=== PATIENT | male | born 1975 | race Caucasian/White ===

== ENCOUNTER 2019-03-21 16:28 | Emergency (ER) | payer SELFPAY ==
[~2019-03-21] VITALS: Ht 180.3 cm; Wt 63.5 kg
[2019-03-21 16:28] VITALS: BP 139/95
--- NOTE | 2019-03-21 16:28 | NUR ---
Patient BIBA BLS, transferred to bed 7. RN evaluating patient at bedside.
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
--- NOTE | 2019-03-21 16:37 | NUR ---
Dr. Martinez is evaluating the patient at bedside.
[2019-03-21] MEDS ORDERED: NACL 0.9% 1,000 ML IV ONE (16:45)
--- NOTE | 2019-03-21 16:52 | NUR ---
PT TAKEN TO CT VIA [place], ACCOMPANIED BY HISTORIOGRAPHY TEACHER.
[2019-03-21] MEDS ORDERED: INSULIN REGULAR, HUMAN 100 UNIT/ML VIAL SUBQ ONE (17:00)
--- NOTE | 2019-03-21 17:13 | NUR ---
PT RETURNED FROM CT AND PLACED IN BED 7.
[2019-03-21 17:18] LABS: APPEARANCE,URINE CLEAR (CLEAR); BILIRUBIN,URINE NEGATIVE (NEGATIVE); BLOOD, URINE NEGATIVE (NEGATIVE); COLOR,URINE YELLOW (YELLOW); LEUKOCYTE ESTERASE ,URINE NEGATIVE (NEGATIVE); NITRITE, URINE NEGATIVE (NEGATIVE); PH,URINE 5.5 (5.0-9.0); UGLUCOSE 3+ (NEGATIVE)
[2019-03-21 17:20] LABS: BARBITURATE, URINE NEGATIVE ng/ml (NEG <=200); BENZODIAZEPINE, URINE NEGATIVE ng/mL (NEG <=200); CANNABINOID, URINE NEGATIVE ng/mL (NEG <=50); COCAINE, URINE NEGATIVE ng/mL (NEG <=300); OPIATE, URINE NEGATIVE ng/mL (NEG <=2000); PHENCYCLIDINE SCREEN,URINE NEGATIVE ng/mL (NEG <=25)
[2019-03-21 17:35] LABS: BASOPHILS # (AUTO) 0.1 K/uL (0.00-0.22); BASOPHILS % (AUTO) 1.1 % (0.0-2.0); EOSINOPHILS % (AUTO) 13.7 % (0.0-4.0); HEMATOCRIT 39.4 % (36-52); HEMOGLOBIN 13.2 g/dL (12.0-18.0); LYMPHOCYTES # (AUTO) 0.5 K/uL (2.0-11.5); LYMPHOCYTES % (AUTO) 6.8 % (20.5-51.1); MEAN CORPUSCULAR HEMOGLOBIN 30 pg (27-31); MEAN CORPUSCULAR HGB CONC 34 g/dL (33-37); MEAN CORPUSCULAR VOLUME 90.2 fL (80-94); MONOCYTES # (AUTO) 0.6 K/uL (0.8-1.0); MONOCYTES % (AUTO) 7.5 % (1.7-9.3); NEUTROPHILS # (AUTO) 5.2 K/uL (1.8-7.7); NEUTROPHILS % (AUTO) 70.9 % (42.2-75.2); PLATELET COUNT (AUTO) 353 K/uL (140-450); RED BLOOD CELL COUNT(AUTO) 4.37 MIL/uL (4.20-6.10); RED CELL DISTRIBUTION WIDTH 12.7 % (11.6-13.7); WHITE BLOOD COUNT (AUTO) 7.3 K/uL (4.8-10.8)
[2019-03-21 17:51] LABS: ALBUMIN 2.9 g/dL (3.4-5.0); ANION GAP 11.5 (8-16); CARBON DIOXIDE 24.7 mmol/L (21-32); CREATININE 0.6 mg/dL (0.7-1.3); POTASSIUM 3.2 mmol/L (3.5-5.1); TOTAL BILIRUBIN 0.3 mg/dL (0.0-1.0)
[2019-03-21] MEDS ORDERED: POTASSIUM CHLORIDE 10 MEQ TABER PO ONE (18:00)
[2019-03-21 18:16] VITALS: BP 105/66
--- NOTE | 2019-03-21 18:16 | NUR ---
Patient discharged with v/s stable. Written and verbal after care instructions given and explained. Patient verbalized understanding. Ambulatory with steady gait. All questions addressed prior to discharge. Advised to follow up with PMD.
== END 2019-03-21 18:16 | disposition home or self-care (01) ==
LOC: MED 16:28
DX: R40.4 Transient alteration of awareness (principal); E87.6 Hypokalemia; E11.65 Type 2 diabetes mellitus with hyperglycemia; F15.20 Other stimulant dependence, uncomplicated
CPT/HCPCS: 36415; 70450; 80053; 80305; 81003; 82948; 85025; 93005; 96360; 96372; 99284; J1815; J7030

== ENCOUNTER 2021-09-23 18:37 | Emergency (ER) | payer BC, MEDICAID ==
[~2021-09-23] VITALS: Ht 175.3 cm; Wt 59.5 kg
[2021-09-23 19:03] VITALS: BP 93/54
[2021-09-23] MEDS ORDERED: NACL 0.9% 1,000 ML IV ONE (19:20)
[2021-09-23 20:06] LABS: BASOPHILS # (AUTO) 0.1 K/uL (0.00-0.22); BASOPHILS % (AUTO) 0.7 % (0.0-2.0); EOSINOPHILS # (AUTO) 0.4 K/uL (0-0.4); EOSINOPHILS % (AUTO) 3.6 % (0.0-4.0); HEMATOCRIT 36.5 % (36-52); HEMOGLOBIN 12.2 g/dL (12.0-18.0); MEAN CORPUSCULAR HEMOGLOBIN 28 pg (27-31); MEAN CORPUSCULAR HGB CONC 34 g/dL (33-37); MEAN CORPUSCULAR VOLUME 83.3 fL (80-94); MONOCYTES # (AUTO) 0.9 K/uL (0.8-1.0); MONOCYTES % (AUTO) 8.2 % (1.7-9.3); NEUTROPHILS # (AUTO) 8.1 K/uL (1.8-7.7); NEUTROPHILS % (AUTO) 77.5 % (42.2-75.2); PLATELET COUNT (AUTO) 377 K/uL (140-450); RED BLOOD CELL COUNT(AUTO) 4.38 MIL/uL (4.20-6.10); RED CELL DISTRIBUTION WIDTH 13.8 % (11.6-13.7); WHITE BLOOD COUNT (AUTO) 10.5 K/uL (4.8-10.8)
[2021-09-23 20:24] LABS: ALBUMIN 2.8 g/dL (3.4-5.0); ANION GAP 8.8 (8-16); CREATININE 0.8 mg/dL (0.6-1.3); MAGNESIUM 2.1 mg/dL (1.8-2.4); POTASSIUM 3.8 mmol/L (3.5-5.1); TOTAL BILIRUBIN 0.3 mg/dL (0.0-1.0)
[2021-09-23] MEDS ORDERED: INSULIN REGULAR, HUMAN 100 UNIT/ML VIAL SUBQ ONE (21:35)
[2021-09-23] MEDS ORDERED: INSU100S5 SUBQ (22:05)
[2021-09-23 22:39] VITALS: BP 100/62
== END 2021-09-23 22:44 | disposition home or self-care (01) ==
LOC: MED 18:37
DX: E11.65 Type 2 diabetes mellitus with hyperglycemia (principal); Z91.14 Patient's other noncompliance with medication regimen; Z79.4 Long term (current) use of insulin
CPT/HCPCS: 36415; 80053; 82803; 83036; 83735; 85025; 96360; 96372; 99283; J1815; J7030

== ENCOUNTER 2023-06-22 23:40 | Inpatient (IN) | payer MEDICAID, OTHER ==
[~2023-06-22] VITALS: Ht 172.7 cm; Wt 81.6 kg
[~2023-06-22 23:40] MED LIST: INSU100S5 SUBQ
[2023-06-22 23:44] VITALS: BP 68/43; PULSE 90; RESP 18; TEMP 97.4; O2SAT 96
[2023-06-22] MEDS: NACL 0.9% 2,000 ML IV ONE (23:58)
[2023-06-23] VITALS (27 sets, daily range): BP systolic 70–136; BP diastolic 42–90; PULSE 98–120; RESP 11–24; TEMP 97.9–100.7; O2SAT 96–100
[2023-06-23 00:06] LABS: BASOPHILS # (AUTO) 0.3 K/uL (0.00-0.22); EOSINOPHILS # (AUTO) 0.3 K/uL (0-0.4); EOSINOPHILS % (AUTO) 1.3 % (0.0-4.0); HEMATOCRIT 32.1 % (36-52); HEMOGLOBIN 10.5 g/dL (12.0-18.0); LYMPHOCYTES # (AUTO) 0.2 K/uL (2.0-11.5); LYMPHOCYTES % (AUTO) 0.8 % (20.5-51.1); MEAN CORPUSCULAR HEMOGLOBIN 29 pg (27-31); MEAN CORPUSCULAR HGB CONC 33 g/dL (33-37); MEAN CORPUSCULAR VOLUME 87.6 fL (80-94); MONOCYTES # (AUTO) 0.7 K/uL (0.8-1.0); MONOCYTES % (AUTO) 2.8 % (1.7-9.3); NEUTROPHILS # (AUTO) 24.5 K/uL (1.8-7.7); NEUTROPHILS % (AUTO) 94.1 % (42.2-75.2); PLATELET COUNT (AUTO) 180 K/uL (140-450); RED BLOOD CELL COUNT(AUTO) 3.66 MIL/uL (4.20-6.10); RED CELL DISTRIBUTION WIDTH 13.6 % (11.6-13.7)
[2023-06-23] MEDS ORDERED: cefTRIAXone 1,000 MG VIAL ONE (00:06)
[2023-06-23] MEDS ORDERED: NOREPINEPHRINE 4 MG/4 ML VIAL IV ONE ×2 (00:16)
[2023-06-23 00:22] LABS: ANION GAP 24.2 (8-16); CALCIUM 7.7 mg/dL (8.5-10.1); CARBON DIOXIDE 14.4 mmol/L (21-32); POTASSIUM 3.6 mmol/L (3.5-5.1)
[2023-06-23 00:24] LABS: BILIRUBIN,DIRECT 0.2 mg/dL (0.0-0.3); TOTAL BILIRUBIN 0.4 mg/dL (0.0-1.0); TOTAL PROTEIN, SERUM 7.4 g/dL (6.4-8.2)
[2023-06-23 00:25] LABS: CREATININE 5.4 mg/dL (0.6-1.3)
[2023-06-23 00:31] LABS: LACTIC ACID 2.4 mmol/L (0.4-2.0)
[2023-06-23 00:38] LABS: BLOOD GAS PH 7.264 (7.35-7.45)
[2023-06-23 00:39] LABS: BLOOD GAS HCO3 11.5 mmol/L (22-26); BLOOD GAS PO2 88.7 mmHg (75-100)
[2023-06-23 00:40] LABS: BLOOD GAS O2 SAT% 96.6 % (92.0-98.5)
[2023-06-23] MEDS ORDERED: PIPERACILLIN/TAZOBACTAM 3.375 GM VIAL IV ONE (00:41)
[2023-06-23] MEDS: PIPERACILLIN/TAZOBACTAM 3.375 GM in DEXTROSE 5% 50 ML IV ONE (00:48)
[2023-06-23] MEDS: NACL 0.9% 2,000 ML IV ONE (00:49)
[2023-06-23] MEDS: NOREPINEPHRINE 4 MG in DEXTROSE 5% 250 ML IV ONE (00:51)
[2023-06-23] MEDS: NACL 0.9% 1,000 ML IV ONE ×2 (01:32→02:14)
[2023-06-23] MEDS: INSULIN REGULAR, HUMAN 100 UNIT in NACL 0.9% 100 ML IV ONE (01:40)
[2023-06-23] MEDS: ONDANSETRON 4 MG/2 ML VIAL IVP ONE (02:18)
[2023-06-23] MEDS ORDERED: NOVR SUBQ (02:25)
[2023-06-23 02:26] LABS: APPEARANCE,URINE CLOUDY (CLEAR); BILIRUBIN,URINE 1+ (NEGATIVE); BLOOD, URINE 3+ (NEGATIVE); COLOR,URINE RED (YELLOW); LEUKOCYTE ESTERASE ,URINE 1+ (NEGATIVE); NITRITE, URINE NEGATIVE (NEGATIVE); PROTEIN,URINE 3+ (NEGATIVE); UGLUCOSE 3+ (NEGATIVE); UROBILINOGEN,URINE 0.2 EU/dL (0.2 - 1)
[2023-06-23 02:30] LABS: ICTOTEST POSITIVE (NEGATIVE)
[2023-06-23 02:31] LABS: RBC,URINE TOO NUMEROUS TO COUN /HPF (0-5)
[2023-06-23 02:32] LABS: BACTERIA,URINE 1+ /HPF (None Seen); SQUAMOUS EPITHELIAL CELL,UR 0-3 (FEW) /LPF (0-3 (FEW))
[2023-06-23] MEDS ORDERED: HYDROcodone/APAP 5/325 MG 1 TAB TAB PO PRN (02:40)
[2023-06-23] MEDS ORDERED: MORPHINE SULFATE 2 MG/ML SYR IVP PRN (02:40)
[2023-06-23] MEDS: DEXT 5% / NACL 0.45% 1,000 ML IV SCH (02:40)
[2023-06-23] MEDS ORDERED: DEXTROSE 50% 50 ML SYR IVP PRN (02:50)
[2023-06-23] MEDS: BLOOD GLUCOSE MONITORING 1 DEV DEV FS SCH (03:03)
[2023-06-23] MEDS: NACL 0.9% 1,000 ML IV SCH (03:12)
[2023-06-23 04:07] LABS: ANION GAP 25.9 (8-16); CARBON DIOXIDE 11.2 mmol/L (21-32); POTASSIUM 3.1 mmol/L (3.5-5.1)
[2023-06-23 04:13] LABS: CREATININE 4.8 mg/dL (0.6-1.3)
[2023-06-23 04:16] LABS: FREE T4 (FREE THYROXINE) 1.19 ng/dL (0.76-1.46); MAGNESIUM 1.8 mg/dL (1.8-2.4); PHOSPHORUS 4.4 mg/dL (2.5-4.9); THYROID STIMULATING HORMONE 0.63 uIU/mL (0.34-3.74)
[2023-06-23] MEDS ORDERED: PIPERACILLIN/TAZOBACTAM 2.25 GM VIAL IV ONE (05:27)
[2023-06-23] MEDS: PIPERACILLIN/TAZOBACTAM 2.25 GM in DEXTROSE 5% 50 ML IV SCH (05:35)
[2023-06-23] MEDS: POTASSIUM CHLORIDE 10 MEQ TABER PO PRN (06:13)
[2023-06-23] MEDS: NOREPINEPHRINE 4 MG in DEXTROSE 5% 250 ML IV PRN (08:47)
[2023-06-23 08:48] LABS: ANION GAP 21.6 (8-16); CALCIUM 7.2 mg/dL (8.5-10.1); CARBON DIOXIDE 13.4 mmol/L (21-32)
[2023-06-23 08:50] LABS: CREATININE 4.9 mg/dL (0.6-1.3)
[2023-06-23 08:51] LABS: MAGNESIUM 1.7 mg/dL (1.8-2.4); PHOSPHORUS 1.7 mg/dL (2.5-4.9)
[2023-06-23] MEDS: INSULIN REGULAR, HUMAN 100 UNIT in NACL 0.9% 100 ML IV SCH (09:34)
[2023-06-23] MEDS ORDERED: ONDANSETRON 4 MG/2 ML VIAL IVP PRN (10:10)
[2023-06-23] MEDS: POTASSIUM PHOSPHATE 15 MM in NACL 0.9% 250 ML IV SCH (15:10)
[2023-06-23 15:18] LABS: ANION GAP 22.7 (8-16); CALCIUM 7.5 mg/dL (8.5-10.1); CARBON DIOXIDE 11.6 mmol/L (21-32); POTASSIUM 3.3 mmol/L (3.5-5.1)
[2023-06-23 15:24] LABS: MAGNESIUM 1.7 mg/dL (1.8-2.4); PHOSPHORUS 2.2 mg/dL (2.5-4.9)
[2023-06-23 15:29] LABS: CREATININE 4.9 mg/dL (0.6-1.3)
[2023-06-23 18:07] LABS: CALCIUM 7.4 mg/dL (8.5-10.1); CARBON DIOXIDE 12.4 mmol/L (21-32); POTASSIUM 3.4 mmol/L (3.5-5.1)
[2023-06-23 18:11] LABS: MAGNESIUM 1.7 mg/dL (1.8-2.4); PHOSPHORUS 2.6 mg/dL (2.5-4.9)
[2023-06-23 20:34] LABS: ANION GAP 23.5 (8-16); CALCIUM 7.8 mg/dL (8.5-10.1); POTASSIUM 3.6 mmol/L (3.5-5.1)
[2023-06-23 20:38] LABS: CARBON DIOXIDE 9.1 mmol/L (21-32)
[2023-06-23 20:39] LABS: CREATININE 5.1 mg/dL (0.6-1.3)
[2023-06-24] VITALS (26 sets, daily range): BP systolic 94–120; BP diastolic 49–82; PULSE 86–118; RESP 14–27; TEMP 97.6–100.3; O2SAT 94–100
[2023-06-24 01:28] LABS: ANION GAP 18.3 (8-16); CALCIUM 7.3 mg/dL (8.5-10.1); CARBON DIOXIDE 13.8 mmol/L (21-32); MAGNESIUM 1.5 mg/dL (1.8-2.4); PHOSPHORUS 1.9 mg/dL (2.5-4.9); POTASSIUM 3.1 mmol/L (3.5-5.1)
[2023-06-24] MEDS: MAG SULF 2000 MG/WATER PREMIX 50 ML IV PRN (03:19)
[2023-06-24 04:45] LABS: HEMATOCRIT 31.6 % (36-52); HEMOGLOBIN 10.5 g/dL (12.0-18.0); MEAN CORPUSCULAR HEMOGLOBIN 29 pg (27-31); MEAN CORPUSCULAR HGB CONC 33 g/dL (33-37); MEAN CORPUSCULAR VOLUME 86.3 fL (80-94); PLATELET COUNT (AUTO) 122 K/uL (140-450); RED BLOOD CELL COUNT(AUTO) 3.66 MIL/uL (4.20-6.10); RED CELL DISTRIBUTION WIDTH 13.7 % (11.6-13.7)
[2023-06-24 04:56] LABS: ALBUMIN 1.4 g/dL (3.4-5.0); ANION GAP 19.4 (8-16); CALCIUM 7.2 mg/dL (8.5-10.1); CARBON DIOXIDE 14.7 mmol/L (21-32); MAGNESIUM 1.6 mg/dL (1.8-2.4); POTASSIUM 3.1 mmol/L (3.5-5.1); TOTAL BILIRUBIN 0.3 mg/dL (0.0-1.0)
[2023-06-24 05:32] LABS: CREATININE 4.9 mg/dL (0.6-1.3)
[2023-06-24 05:33] LABS: LYMPHOCYTES % (MANUAL) 0 % (20-46); MONOCYTES % (MANUAL) 2 % (5-12); WHITE BLOOD COUNT (AUTO) 26.9 K/uL (4.8-10.8)
[2023-06-24 08:08] LABS: T4 (THYROXINE) 5.9 ug/dL (4.5-12.0)
[2023-06-24 08:35] LABS: CALCIUM 7.4 mg/dL (8.5-10.1); CARBON DIOXIDE 13.2 mmol/L (21-32); POTASSIUM 3.2 mmol/L (3.5-5.1)
[2023-06-24 08:36] LABS: CREATININE 4.9 mg/dL (0.6-1.3)
[2023-06-24] MEDS: ACETAMINOPHEN 325 MG TAB PO PRN (09:56)
[2023-06-24] MEDS: POTASSIUM PHOSPHATE 15 MM in NACL 0.9% 250 ML IV SCH ×2 (10:20→16:12)
[2023-06-24] MEDS ORDERED: METOCLOPRAMIDE 10 MG/2 ML INJ VIAL IVP PRN (11:35)
[2023-06-24 12:36] LABS: ANION GAP 17.5 (8-16); CALCIUM 6.8 mg/dL (8.5-10.1); CARBON DIOXIDE 14.3 mmol/L (21-32); POTASSIUM 3.8 mmol/L (3.5-5.1)
[2023-06-24 12:48] LABS: MAGNESIUM 1.9 mg/dL (1.8-2.4); PHOSPHORUS 2.1 mg/dL (2.5-4.9)
[2023-06-24 17:39] LABS: ALBUMIN 1.3 g/dL (3.4-5.0); ANION GAP 21.8 (8-16); CARBON DIOXIDE 12.6 mmol/L (21-32); MAGNESIUM 1.9 mg/dL (1.8-2.4); PHOSPHORUS 2.5 mg/dL (2.5-4.9); POTASSIUM 3.4 mmol/L (3.5-5.1); TOTAL BILIRUBIN 0.3 mg/dL (0.0-1.0); TOTAL PROTEIN, SERUM 5.9 g/dL (6.4-8.2)
[2023-06-24 19:11] LABS: CALCIUM 7.7 mg/dL (8.5-10.1)
[2023-06-24 20:58] LABS: ALBUMIN 1.3 g/dL (3.4-5.0); ANION GAP 19.8 (8-16); CARBON DIOXIDE 11.5 mmol/L (21-32); MAGNESIUM 1.8 mg/dL (1.8-2.4); PHOSPHORUS 3.1 mg/dL (2.5-4.9); POTASSIUM 3.3 mmol/L (3.5-5.1); TOTAL BILIRUBIN 0.4 mg/dL (0.0-1.0); TOTAL PROTEIN, SERUM 5.8 g/dL (6.4-8.2)
[2023-06-24 21:03] LABS: CREATININE 4.8 mg/dL (0.6-1.3)
[2023-06-24 21:40] LABS: CALCIUM 7.5 mg/dL (8.5-10.1)
[2023-06-25] VITALS (28 sets, daily range): BP systolic 93–145; BP diastolic 52–79; PULSE 82–105; RESP 14–25; TEMP 98.6–102.4; O2SAT 93–99
[2023-06-25 00:50] LABS: ANION GAP 21.7 (8-16); CALCIUM 7.1 mg/dL (8.5-10.1); CARBON DIOXIDE 11.3 mmol/L (21-32)
[2023-06-25 00:52] LABS: MAGNESIUM 1.7 mg/dL (1.8-2.4); PHOSPHORUS 3.8 mg/dL (2.5-4.9)
[2023-06-25 01:01] LABS: CREATININE 4.9 mg/dL (0.6-1.3)
[2023-06-25 04:33] LABS: EOSINOPHILS # (AUTO) 0.2 K/uL (0-0.4); HEMOGLOBIN 9.6 g/dL (12.0-18.0); MEAN CORPUSCULAR HEMOGLOBIN 29 pg (27-31)
[2023-06-25 04:42] LABS: BASOPHILS % (AUTO) 0.2 % (0.0-2.0); EOSINOPHILS % (AUTO) 1.1 % (0.0-4.0); HEMATOCRIT 28.3 % (36-52); LYMPHOCYTES # (AUTO) 0.3 K/uL (2.0-11.5); LYMPHOCYTES % (AUTO) 1.9 % (20.5-51.1); MEAN CORPUSCULAR HGB CONC 34 g/dL (33-37); MEAN CORPUSCULAR VOLUME 85.4 fL (80-94); MONOCYTES # (AUTO) 0.8 K/uL (0.8-1.0); MONOCYTES % (AUTO) 5.5 % (1.7-9.3); NEUTROPHILS # (AUTO) 13.4 K/uL (1.8-7.7); NEUTROPHILS % (AUTO) 91.3 % (42.2-75.2); PLATELET COUNT (AUTO) 90 K/uL (140-450); RED BLOOD CELL COUNT(AUTO) 3.31 MIL/uL (4.20-6.10); RED CELL DISTRIBUTION WIDTH 14.4 % (11.6-13.7); WHITE BLOOD COUNT (AUTO) 14.7 K/uL (4.8-10.8)
[2023-06-25 04:58] LABS: ALBUMIN 1.2 g/dL (3.4-5.0); ANION GAP 19.9 (8-16); CARBON DIOXIDE 12.8 mmol/L (21-32); MAGNESIUM 1.8 mg/dL (1.8-2.4); PHOSPHORUS 3.2 mg/dL (2.5-4.9); POTASSIUM 3.7 mmol/L (3.5-5.1); TOTAL BILIRUBIN 0.3 mg/dL (0.0-1.0); TOTAL PROTEIN, SERUM 5.6 g/dL (6.4-8.2)
[2023-06-25 05:46] LABS: CREATININE 4.9 mg/dL (0.6-1.3)
[2023-06-25 05:49] LABS: CALCIUM 7.4 mg/dL (8.5-10.1)
[2023-06-25 08:30] LABS: ANION GAP 19.7 (8-16); CARBON DIOXIDE 11.2 mmol/L (21-32); POTASSIUM 3.9 mmol/L (3.5-5.1)
[2023-06-25 08:32] LABS: CREATININE 4.9 mg/dL (0.6-1.3)
[2023-06-25 08:35] LABS: MAGNESIUM 1.8 mg/dL (1.8-2.4); PHOSPHORUS 3.2 mg/dL (2.5-4.9)
[2023-06-25] MEDS: MIDODRINE 5 MG TAB PO SCH (13:14)
[2023-06-25 13:37] LABS: ANION GAP 18.6 (8-16); CALCIUM 6.7 mg/dL (8.5-10.1); POTASSIUM 3.6 mmol/L (3.5-5.1)
[2023-06-25 13:39] LABS: CREATININE 4.9 mg/dL (0.6-1.3)
[2023-06-25 13:41] LABS: MAGNESIUM 1.7 mg/dL (1.8-2.4); PHOSPHORUS 2.9 mg/dL (2.5-4.9)
[2023-06-25 17:49] LABS: ALBUMIN 1.2 g/dL (3.4-5.0); ANION GAP 18.7 (8-16); CALCIUM 6.7 mg/dL (8.5-10.1); CARBON DIOXIDE 11.7 mmol/L (21-32); MAGNESIUM 1.7 mg/dL (1.8-2.4); PHOSPHORUS 3.2 mg/dL (2.5-4.9); POTASSIUM 3.4 mmol/L (3.5-5.1); TOTAL BILIRUBIN 0.3 mg/dL (0.0-1.0); TOTAL PROTEIN, SERUM 5.7 g/dL (6.4-8.2)
[2023-06-25 17:52] LABS: CREATININE 4.8 mg/dL (0.6-1.3)
[2023-06-25] MEDS: MAGNESIUM OXIDE 400 MG TAB PO PRN (19:14)
[2023-06-25 20:09] LABS: ALBUMIN 1.2 g/dL (3.4-5.0); ANION GAP 17.8 (8-16); CALCIUM 6.9 mg/dL (8.5-10.1); CARBON DIOXIDE 12.7 mmol/L (21-32); MAGNESIUM 1.7 mg/dL (1.8-2.4); PHOSPHORUS 3.3 mg/dL (2.5-4.9); POTASSIUM 3.5 mmol/L (3.5-5.1); TOTAL BILIRUBIN 0.3 mg/dL (0.0-1.0); TOTAL PROTEIN, SERUM 5.7 g/dL (6.4-8.2)
[2023-06-25 20:10] LABS: CREATININE 4.9 mg/dL (0.6-1.3)
[2023-06-26] VITALS (25 sets, daily range): BP systolic 84–150; BP diastolic 45–77; PULSE 70–117; RESP 12–21; TEMP 96.9–102.5; O2SAT 96–100
[2023-06-26 00:37] LABS: ALBUMIN 1.3 g/dL (3.4-5.0); ANION GAP 22.6 (8-16); CALCIUM 7.5 mg/dL (8.5-10.1); CARBON DIOXIDE 11.2 mmol/L (21-32); MAGNESIUM 1.7 mg/dL (1.8-2.4); PHOSPHORUS 3.6 mg/dL (2.5-4.9); POTASSIUM 3.8 mmol/L (3.5-5.1); TOTAL BILIRUBIN 0.4 mg/dL (0.0-1.0); TOTAL PROTEIN, SERUM 6.2 g/dL (6.4-8.2)
[2023-06-26 00:39] LABS: CREATININE 4.8 mg/dL (0.6-1.3)
[2023-06-26 04:19] LABS: BASOPHILS % (AUTO) 0.3 % (0.0-2.0); EOSINOPHILS # (AUTO) 0.1 K/uL (0-0.4); EOSINOPHILS % (AUTO) 0.5 % (0.0-4.0); HEMATOCRIT 29.1 % (36-52); HEMOGLOBIN 9.6 g/dL (12.0-18.0); LYMPHOCYTES # (AUTO) 0.2 K/uL (2.0-11.5); LYMPHOCYTES % (AUTO) 1.8 % (20.5-51.1); MEAN CORPUSCULAR HEMOGLOBIN 29 pg (27-31); MEAN CORPUSCULAR HGB CONC 33 g/dL (33-37); MEAN CORPUSCULAR VOLUME 86.9 fL (80-94); MONOCYTES # (AUTO) 1.3 K/uL (0.8-1.0); MONOCYTES % (AUTO) 9.4 % (1.7-9.3); NEUTROPHILS # (AUTO) 12.5 K/uL (1.8-7.7); PLATELET COUNT (AUTO) 82 K/uL (140-450); RED BLOOD CELL COUNT(AUTO) 3.34 MIL/uL (4.20-6.10); RED CELL DISTRIBUTION WIDTH 14.9 % (11.6-13.7); WHITE BLOOD COUNT (AUTO) 14.2 K/uL (4.8-10.8)
[2023-06-26 04:40] LABS: ALBUMIN 1.2 g/dL (3.4-5.0); ANION GAP 16.2 (8-16); CALCIUM 6.8 mg/dL (8.5-10.1); CARBON DIOXIDE 13.3 mmol/L (21-32); MAGNESIUM 1.7 mg/dL (1.8-2.4); POTASSIUM 3.5 mmol/L (3.5-5.1); TOTAL BILIRUBIN 0.3 mg/dL (0.0-1.0); TOTAL PROTEIN, SERUM 5.6 g/dL (6.4-8.2)
[2023-06-26 04:45] LABS: CREATININE 4.8 mg/dL (0.6-1.3)
[2023-06-26 08:51] LABS: ANION GAP 19.4 (8-16); CALCIUM 6.7 mg/dL (8.5-10.1); CARBON DIOXIDE 11.5 mmol/L (21-32); POTASSIUM 3.9 mmol/L (3.5-5.1)
[2023-06-26 08:53] LABS: CREATININE 4.5 mg/dL (0.6-1.3)
[2023-06-26 08:54] LABS: MAGNESIUM 1.7 mg/dL (1.8-2.4); PHOSPHORUS 3.6 mg/dL (2.5-4.9)
[2023-06-26] MEDS: FLUDROCORTISONE 0.1 MG TAB PO SCH (10:57)
[2023-06-26] MEDS: MIDODRINE 5 MG TAB PO SCH (12:06)
[2023-06-26] MEDS: MAG SULF 2000 MG/WATER PREMIX 50 ML IV SCH (12:06)
[2023-06-26 12:38] LABS: ANION GAP 17.7 (8-16); POTASSIUM 3.7 mmol/L (3.5-5.1)
[2023-06-26 12:39] LABS: CREATININE 4.6 mg/dL (0.6-1.3)
[2023-06-26 13:00] LABS: MAGNESIUM 1.8 mg/dL (1.8-2.4); PHOSPHORUS 3.8 mg/dL (2.5-4.9)
[2023-06-26 16:33] LABS: ANION GAP 15.8 (8-16); CALCIUM 6.8 mg/dL (8.5-10.1); CARBON DIOXIDE 10.8 mmol/L (21-32); POTASSIUM 3.6 mmol/L (3.5-5.1)
[2023-06-26 16:37] LABS: MAGNESIUM 2.1 mg/dL (1.8-2.4); PHOSPHORUS 3.7 mg/dL (2.5-4.9)
[2023-06-26 16:54] LABS: CREATININE 4.4 mg/dL (0.6-1.3)
[2023-06-26 20:19] LABS: ANION GAP 14.6 (8-16); CARBON DIOXIDE 12.2 mmol/L (21-32); POTASSIUM 3.8 mmol/L (3.5-5.1)
[2023-06-26 20:22] LABS: MAGNESIUM 2.1 mg/dL (1.8-2.4); PHOSPHORUS 3.8 mg/dL (2.5-4.9)
[2023-06-26 20:44] LABS: CREATININE 4.3 mg/dL (0.6-1.3)
[2023-06-27] VITALS (24 sets, daily range): BP systolic 90–139; BP diastolic 49–81; PULSE 74–94; RESP 12–22; TEMP 98.1–99.1; O2SAT 99–100
[2023-06-27 00:28] LABS: ANION GAP 16.4 (8-16); CALCIUM 6.8 mg/dL (8.5-10.1); CARBON DIOXIDE 12.3 mmol/L (21-32); MAGNESIUM 2.1 mg/dL (1.8-2.4); PHOSPHORUS 3.9 mg/dL (2.5-4.9); POTASSIUM 3.7 mmol/L (3.5-5.1)
[2023-06-27 00:32] LABS: CREATININE 4.2 mg/dL (0.6-1.3)
[2023-06-27 05:18] LABS: BASOPHILS % (AUTO) 0.1 % (0.0-2.0); EOSINOPHILS # (AUTO) 0.3 K/uL (0-0.4); EOSINOPHILS % (AUTO) 1.9 % (0.0-4.0); HEMATOCRIT 33.5 % (36-52); HEMOGLOBIN 10.9 g/dL (12.0-18.0); LYMPHOCYTES # (AUTO) 0.5 K/uL (2.0-11.5); LYMPHOCYTES % (AUTO) 3.5 % (20.5-51.1); MEAN CORPUSCULAR HEMOGLOBIN 29 pg (27-31); MEAN CORPUSCULAR HGB CONC 33 g/dL (33-37); MEAN CORPUSCULAR VOLUME 87.6 fL (80-94); MONOCYTES # (AUTO) 1.5 K/uL (0.8-1.0); MONOCYTES % (AUTO) 10.3 % (1.7-9.3); NEUTROPHILS # (AUTO) 12.6 K/uL (1.8-7.7); NEUTROPHILS % (AUTO) 84.2 % (42.2-75.2); PLATELET COUNT (AUTO) 139 K/uL (140-450); RED BLOOD CELL COUNT(AUTO) 3.82 MIL/uL (4.20-6.10); RED CELL DISTRIBUTION WIDTH 14.9 % (11.6-13.7); WHITE BLOOD COUNT (AUTO) 14.9 K/uL (4.8-10.8)
[2023-06-27 05:50] LABS: ALBUMIN 1.2 g/dL (3.4-5.0); ANION GAP 13.7 (8-16); CARBON DIOXIDE 15.2 mmol/L (21-32); MAGNESIUM 2.2 mg/dL (1.8-2.4); POTASSIUM 3.9 mmol/L (3.5-5.1); TOTAL BILIRUBIN 0.2 mg/dL (0.0-1.0); TOTAL PROTEIN, SERUM 5.6 g/dL (6.4-8.2)
[2023-06-27 05:54] LABS: CREATININE 4.2 mg/dL (0.6-1.3)
[2023-06-27 11:33] LABS: HEMOGLOBIN A1C 11.9 % (4.8-5.6)
[2023-06-27 13:08] LABS: ANION GAP 16.9 (8-16); CALCIUM 6.9 mg/dL (8.5-10.1); CARBON DIOXIDE 14.6 mmol/L (21-32); POTASSIUM 3.5 mmol/L (3.5-5.1)
[2023-06-27 13:22] LABS: CREATININE 4.1 mg/dL (0.6-1.3)
[2023-06-27 17:10] LABS: ANION GAP 19.7 (8-16); CALCIUM 6.7 mg/dL (8.5-10.1); CARBON DIOXIDE 11.8 mmol/L (21-32); POTASSIUM 3.5 mmol/L (3.5-5.1)
[2023-06-27 18:42] LABS: BILIRUBIN,URINE NEGATIVE (NEGATIVE); BLOOD, URINE 3+ (NEGATIVE); COLOR,URINE YELLOW (YELLOW); LEUKOCYTE ESTERASE ,URINE 2+ (NEGATIVE); NITRITE, URINE NEGATIVE (NEGATIVE); PROTEIN,URINE 1+ (NEGATIVE); UGLUCOSE TRACE (NEGATIVE); UROBILINOGEN,URINE 0.2 EU/dL (0.2 - 1)
[2023-06-27 18:43] LABS: APPEARANCE,URINE HAZY (CLEAR)
[2023-06-27 18:47] LABS: BACTERIA,URINE FEW /HPF (None Seen); RBC,URINE 0-5 /HPF (0-5); SQUAMOUS EPITHELIAL CELL,UR 0-3 (FEW) /LPF (0-3 (FEW)); YEAST,URINE Moderate /HPF (None Seen)
[2023-06-27 22:07] LABS: ANION GAP 16.6 (8-16); CALCIUM 6.7 mg/dL (8.5-10.1); CARBON DIOXIDE 14.3 mmol/L (21-32)
[2023-06-27 22:10] LABS: POTASSIUM 2.9 mmol/L (3.5-5.1)
[2023-06-27] MEDS: KCL 20 MEQ IN 100 mL PREMIX 200 ML IV PRN (22:33)
[2023-06-28] VITALS (24 sets, daily range): BP systolic 85–137; BP diastolic 37–80; PULSE 80–115; RESP 12–27; TEMP 98.1–99.2; O2SAT 93–100
[2023-06-28 00:41] LABS: ANION GAP 14.7 (8-16); CALCIUM 6.7 mg/dL (8.5-10.1); CREATININE 3.9 mg/dL (0.6-1.3); POTASSIUM 3.7 mmol/L (3.5-5.1)
[2023-06-28 00:58] LABS: MAGNESIUM 1.8 mg/dL (1.8-2.4); PHOSPHORUS 3.8 mg/dL (2.5-4.9)
[2023-06-28 04:34] LABS: EOSINOPHILS # (AUTO) 0.2 K/uL (0-0.4); EOSINOPHILS % (AUTO) 0.9 % (0.0-4.0); HEMATOCRIT 30.7 % (36-52); HEMOGLOBIN 10.1 g/dL (12.0-18.0); LYMPHOCYTES # (AUTO) 0.3 K/uL (2.0-11.5); LYMPHOCYTES % (AUTO) 1.2 % (20.5-51.1); MEAN CORPUSCULAR HEMOGLOBIN 29 pg (27-31); MEAN CORPUSCULAR HGB CONC 33 g/dL (33-37); MEAN CORPUSCULAR VOLUME 86.9 fL (80-94); MONOCYTES # (AUTO) 0.9 K/uL (0.8-1.0); MONOCYTES % (AUTO) 4.5 % (1.7-9.3); NEUTROPHILS # (AUTO) 19.6 K/uL (1.8-7.7); NEUTROPHILS % (AUTO) 93.4 % (42.2-75.2); PLATELET COUNT (AUTO) 217 K/uL (140-450); RED BLOOD CELL COUNT(AUTO) 3.53 MIL/uL (4.20-6.10); RED CELL DISTRIBUTION WIDTH 14.7 % (11.6-13.7)
[2023-06-28 04:51] LABS: ALBUMIN 1.3 g/dL (3.4-5.0); ANION GAP 17.3 (8-16); CALCIUM 6.7 mg/dL (8.5-10.1); CARBON DIOXIDE 14.2 mmol/L (21-32); CREATININE 3.8 mg/dL (0.6-1.3); MAGNESIUM 1.9 mg/dL (1.8-2.4); POTASSIUM 3.5 mmol/L (3.5-5.1); TOTAL BILIRUBIN 0.2 mg/dL (0.0-1.0); TOTAL PROTEIN, SERUM 5.8 g/dL (6.4-8.2)
[2023-06-28 08:06] LABS: ANION GAP 14.9 (8-16); CALCIUM 6.8 mg/dL (8.5-10.1); CARBON DIOXIDE 14.6 mmol/L (21-32); CREATININE 3.8 mg/dL (0.6-1.3); POTASSIUM 3.5 mmol/L (3.5-5.1)
[2023-06-28 08:39] LABS: MAGNESIUM 1.9 mg/dL (1.8-2.4); PHOSPHORUS 3.7 mg/dL (2.5-4.9)
[2023-06-28] MEDS: LIDOCAINE MPF 1% 5 ML ONE ×2 (09:47→09:48)
[2023-06-28] MEDS: SODIUM BICARBONATE 8.4% 50 MEQ in DEXT 5% / NACL 0.45% 1,000 ML IV SCH (12:18)
[2023-06-28 12:43] LABS: ANION GAP 16.2 (8-16); CALCIUM 6.7 mg/dL (8.5-10.1); CARBON DIOXIDE 15.2 mmol/L (21-32); CREATININE 3.7 mg/dL (0.6-1.3); POTASSIUM 3.4 mmol/L (3.5-5.1)
[2023-06-28 16:12] LABS: ANION GAP 16.3 (8-16); CALCIUM 7.1 mg/dL (8.5-10.1); CARBON DIOXIDE 13.2 mmol/L (21-32); CREATININE 3.7 mg/dL (0.6-1.3); POTASSIUM 3.5 mmol/L (3.5-5.1)
[2023-06-28 20:03] LABS: ANION GAP 15.8 (8-16); CALCIUM 6.7 mg/dL (8.5-10.1); CARBON DIOXIDE 16.6 mmol/L (21-32); CREATININE 3.7 mg/dL (0.6-1.3); POTASSIUM 3.4 mmol/L (3.5-5.1)
[2023-06-28] MEDS: CEFEPIME 2,000 MG in DEXTROSE 5% 100 ML IV SCH (20:11)
[2023-06-29] VITALS (30 sets, daily range): BP systolic 86–122; BP diastolic 48–79; PULSE 80–98; RESP 13–26; TEMP 97.8–99.9; O2SAT 94–100
[2023-06-29 00:32] LABS: CALCIUM 6.5 mg/dL (8.5-10.1); CREATININE 3.6 mg/dL (0.6-1.3); POTASSIUM 3.5 mmol/L (3.5-5.1)
[2023-06-29 00:35] LABS: MAGNESIUM 1.7 mg/dL (1.8-2.4); PHOSPHORUS 3.6 mg/dL (2.5-4.9)
[2023-06-29 05:06] LABS: ANION GAP 13.7 (8-16); CALCIUM 6.3 mg/dL (8.5-10.1); CARBON DIOXIDE 17.5 mmol/L (21-32); CREATININE 3.4 mg/dL (0.6-1.3); POTASSIUM 3.2 mmol/L (3.5-5.1)
[2023-06-29 05:11] LABS: MAGNESIUM 1.6 mg/dL (1.8-2.4); PHOSPHORUS 3.4 mg/dL (2.5-4.9)
[2023-06-29 07:33] LABS: ANION GAP 15.4 (8-16); CARBON DIOXIDE 15.1 mmol/L (21-32)
[2023-06-29 07:39] LABS: BASOPHILS % (AUTO) 0.2 % (0.0-2.0); EOSINOPHILS # (AUTO) 0.2 K/uL (0-0.4); EOSINOPHILS % (AUTO) 1.3 % (0.0-4.0); HEMATOCRIT 25.8 % (36-52); HEMOGLOBIN 8.6 g/dL (12.0-18.0); LYMPHOCYTES # (AUTO) 0.4 K/uL (2.0-11.5); LYMPHOCYTES % (AUTO) 2.2 % (20.5-51.1); MEAN CORPUSCULAR HEMOGLOBIN 29 pg (27-31); MEAN CORPUSCULAR HGB CONC 34 g/dL (33-37); MEAN CORPUSCULAR VOLUME 86.6 fL (80-94); MONOCYTES # (AUTO) 1.4 K/uL (0.8-1.0); MONOCYTES % (AUTO) 8.2 % (1.7-9.3); NEUTROPHILS # (AUTO) 15.6 K/uL (1.8-7.7); NEUTROPHILS % (AUTO) 88.1 % (42.2-75.2); PLATELET COUNT (AUTO) 299 K/uL (140-450); RED BLOOD CELL COUNT(AUTO) 2.98 MIL/uL (4.20-6.10); RED CELL DISTRIBUTION WIDTH 14.2 % (11.6-13.7); WHITE BLOOD COUNT (AUTO) 17.6 K/uL (4.8-10.8)
[2023-06-29 10:10] LABS: ANION GAP 12.6 (8-16); CALCIUM 6.4 mg/dL (8.5-10.1); CARBON DIOXIDE 17.6 mmol/L (21-32); CREATININE 3.5 mg/dL (0.6-1.3); POTASSIUM 3.2 mmol/L (3.5-5.1)
[2023-06-29 10:16] LABS: INR 1.03 (0.8-1.2); PARTIAL THROMBOPLASTIN TIME 29.9 secs (22-35.6); PROTHROMBIN TIME 10.8 secs (10.8-13.4)
[2023-06-29 13:17] LABS: ANION GAP 11.9 (8-16); CALCIUM 6.2 mg/dL (8.5-10.1); CARBON DIOXIDE 19.3 mmol/L (21-32); CREATININE 3.3 mg/dL (0.6-1.3); POTASSIUM 3.2 mmol/L (3.5-5.1)
[2023-06-29] MEDS: INSULIN LANTUS 100 UNITS/ML 10 ML VIAL SUBQ SCH (15:47)
[2023-06-29] MEDS: LIDOCAINE 1% 500 MG/50 ML VIAL ONE (21:01)
[2023-06-29] MEDS: MIDAZOLAM 2 MG/2 ML VIAL ONE (21:01)
[2023-06-29] MEDS: fentaNYL citrate 0.05 MG/ML VIAL ONE (21:01)
[2023-06-29] MEDS: BLOOD GLUCOSE MONITORING 1 DEV DEV FS SCH (21:08)
[2023-06-29] MEDS: INSULIN LISPRO SLIDING SCALE 100 UNITS/ML VIAL SUBQ PRN (21:17)
[2023-06-30] VITALS (22 sets, daily range): BP systolic 96–125; BP diastolic 58–77; PULSE 82–98; RESP 13–27; TEMP 96.8–98.8; O2SAT 91–99
[2023-06-30 05:20] LABS: BASOPHILS % (AUTO) 0.2 % (0.0-2.0); EOSINOPHILS # (AUTO) 0.3 K/uL (0-0.4); EOSINOPHILS % (AUTO) 1.9 % (0.0-4.0); HEMATOCRIT 25.4 % (36-52); HEMOGLOBIN 8.5 g/dL (12.0-18.0); LYMPHOCYTES # (AUTO) 0.6 K/uL (2.0-11.5); LYMPHOCYTES % (AUTO) 3.8 % (20.5-51.1); MEAN CORPUSCULAR HEMOGLOBIN 29 pg (27-31); MEAN CORPUSCULAR HGB CONC 34 g/dL (33-37); MEAN CORPUSCULAR VOLUME 85.4 fL (80-94); MONOCYTES # (AUTO) 1.2 K/uL (0.8-1.0); MONOCYTES % (AUTO) 7.6 % (1.7-9.3); NEUTROPHILS # (AUTO) 13.7 K/uL (1.8-7.7); NEUTROPHILS % (AUTO) 86.5 % (42.2-75.2); PLATELET COUNT (AUTO) 411 K/uL (140-450); RED BLOOD CELL COUNT(AUTO) 2.97 MIL/uL (4.20-6.10); RED CELL DISTRIBUTION WIDTH 14.1 % (11.6-13.7); WHITE BLOOD COUNT (AUTO) 15.8 K/uL (4.8-10.8)
[2023-06-30 05:39] LABS: ALBUMIN 1.2 g/dL (3.4-5.0); ANION GAP 13.7 (8-16); CALCIUM 6.1 mg/dL (8.5-10.1); CARBON DIOXIDE 20.8 mmol/L (21-32); CREATININE 3.2 mg/dL (0.6-1.3); MAGNESIUM 1.4 mg/dL (1.8-2.4); PHOSPHORUS 3.2 mg/dL (2.5-4.9); POTASSIUM 3.5 mmol/L (3.5-5.1); TOTAL BILIRUBIN 0.2 mg/dL (0.0-1.0); TOTAL PROTEIN, SERUM 5.7 g/dL (6.4-8.2)
[2023-06-30] MEDS: INSULIN LANTUS 100 UNITS/ML 10 ML VIAL SUBQ SCH (08:17)
[2023-06-30] MEDS: SODIUM BICARBONATE 8.4% 50 MEQ in NACL 0.45% 1,000 ML IV SCH (11:20)
[2023-07-01] VITALS (8 sets, daily range): BP systolic 106–125; BP diastolic 56–73; PULSE 81–97; RESP 18; TEMP 97.8–99; O2SAT 94–100
[2023-07-01] MEDS: INSULIN LANTUS 100 UNITS/ML 10 ML VIAL SUBQ SCH (09:09)
[2023-07-01 15:37] LABS: BASOPHILS # (AUTO) 0.1 K/uL (0.00-0.22); BASOPHILS % (AUTO) 0.4 % (0.0-2.0); EOSINOPHILS # (AUTO) 0.3 K/uL (0-0.4); EOSINOPHILS % (AUTO) 1.7 % (0.0-4.0); HEMATOCRIT 25.3 % (36-52); HEMOGLOBIN 8.6 g/dL (12.0-18.0); LYMPHOCYTES # (AUTO) 0.7 K/uL (2.0-11.5); LYMPHOCYTES % (AUTO) 3.8 % (20.5-51.1); MEAN CORPUSCULAR HEMOGLOBIN 29 pg (27-31); MEAN CORPUSCULAR HGB CONC 34 g/dL (33-37); MEAN CORPUSCULAR VOLUME 85.2 fL (80-94); MONOCYTES # (AUTO) 1.3 K/uL (0.8-1.0); MONOCYTES % (AUTO) 6.9 % (1.7-9.3); NEUTROPHILS # (AUTO) 15.7 K/uL (1.8-7.7); NEUTROPHILS % (AUTO) 87.2 % (42.2-75.2); PLATELET COUNT (AUTO) 626 K/uL (140-450); RED BLOOD CELL COUNT(AUTO) 2.97 MIL/uL (4.20-6.10); RED CELL DISTRIBUTION WIDTH 13.7 % (11.6-13.7); WHITE BLOOD COUNT (AUTO) 18.1 K/uL (4.8-10.8)
[2023-07-01 15:50] LABS: ANION GAP 9.8 (8-16); CALCIUM 6.1 mg/dL (8.5-10.1); CARBON DIOXIDE 27.5 mmol/L (21-32); CREATININE 2.7 mg/dL (0.6-1.3); POTASSIUM 3.3 mmol/L (3.5-5.1)
[2023-07-01] MEDS: NACL 0.45% 1,000 ML IV SCH (17:36)
[2023-07-02] VITALS (8 sets, daily range): BP systolic 105–120; BP diastolic 56–77; PULSE 75–88; RESP 18; TEMP 97.8–99.6; O2SAT 94–98
[2023-07-02 05:50] LABS: BASOPHILS % (AUTO) 0.2 % (0.0-2.0); EOSINOPHILS # (AUTO) 0.3 K/uL (0-0.4); EOSINOPHILS % (AUTO) 1.9 % (0.0-4.0); HEMATOCRIT 24.5 % (36-52); HEMOGLOBIN 8.4 g/dL (12.0-18.0); LYMPHOCYTES # (AUTO) 0.7 K/uL (2.0-11.5); LYMPHOCYTES % (AUTO) 4.6 % (20.5-51.1); MEAN CORPUSCULAR HEMOGLOBIN 29 pg (27-31); MEAN CORPUSCULAR HGB CONC 34 g/dL (33-37); MEAN CORPUSCULAR VOLUME 85.5 fL (80-94); MONOCYTES # (AUTO) 1.1 K/uL (0.8-1.0); MONOCYTES % (AUTO) 6.7 % (1.7-9.3); NEUTROPHILS # (AUTO) 14.1 K/uL (1.8-7.7); NEUTROPHILS % (AUTO) 86.6 % (42.2-75.2); PLATELET COUNT (AUTO) 666 K/uL (140-450); RED BLOOD CELL COUNT(AUTO) 2.87 MIL/uL (4.20-6.10); RED CELL DISTRIBUTION WIDTH 13.6 % (11.6-13.7); WHITE BLOOD COUNT (AUTO) 16.3 K/uL (4.8-10.8)
[2023-07-02 05:51] LABS: ANION GAP 10.3 (8-16); CALCIUM 6.7 mg/dL (8.5-10.1); CARBON DIOXIDE 28.3 mmol/L (21-32); CREATININE 2.6 mg/dL (0.6-1.3); POTASSIUM 3.6 mmol/L (3.5-5.1)
[2023-07-02 05:57] LABS: MAGNESIUM 1.3 mg/dL (1.8-2.4); PHOSPHORUS 3.2 mg/dL (2.5-4.9)
[2023-07-02] MEDS: FAMOTIDINE 20 MG TAB PO SCH (08:22)
[2023-07-02] MEDS: MAG SULF 2000 MG/WATER PREMIX 50 ML IV ONE (13:48)
[2023-07-03] VITALS (8 sets, daily range): BP systolic 112–127; BP diastolic 68–80; PULSE 81–95; RESP 16–20; TEMP 97.8–99.6; O2SAT 95–98
[2023-07-03 05:17] LABS: BASOPHILS # (AUTO) 0.1 K/uL (0.00-0.22); BASOPHILS % (AUTO) 0.5 % (0.0-2.0); EOSINOPHILS # (AUTO) 0.3 K/uL (0-0.4); EOSINOPHILS % (AUTO) 1.5 % (0.0-4.0); HEMATOCRIT 25.8 % (36-52); HEMOGLOBIN 8.5 g/dL (12.0-18.0); LYMPHOCYTES # (AUTO) 0.8 K/uL (2.0-11.5); LYMPHOCYTES % (AUTO) 4.4 % (20.5-51.1); MEAN CORPUSCULAR HEMOGLOBIN 28 pg (27-31); MEAN CORPUSCULAR HGB CONC 33 g/dL (33-37); MEAN CORPUSCULAR VOLUME 85.6 fL (80-94); MONOCYTES # (AUTO) 1.1 K/uL (0.8-1.0); MONOCYTES % (AUTO) 6.2 % (1.7-9.3); NEUTROPHILS # (AUTO) 15.2 K/uL (1.8-7.7); NEUTROPHILS % (AUTO) 87.4 % (42.2-75.2); PLATELET COUNT (AUTO) 733 K/uL (140-450); RED BLOOD CELL COUNT(AUTO) 3.01 MIL/uL (4.20-6.10); RED CELL DISTRIBUTION WIDTH 13.3 % (11.6-13.7); WHITE BLOOD COUNT (AUTO) 17.4 K/uL (4.8-10.8)
[2023-07-03 05:45] LABS: MAGNESIUM 1.8 mg/dL (1.8-2.4); PHOSPHORUS 3.7 mg/dL (2.5-4.9)
[2023-07-03 05:46] LABS: ANION GAP 11.2 (8-16); CALCIUM 7.2 mg/dL (8.5-10.1); CARBON DIOXIDE 27.2 mmol/L (21-32); CREATININE 2.7 mg/dL (0.6-1.3); POTASSIUM 3.4 mmol/L (3.5-5.1)
[2023-07-03] MEDS: NACL 0.9% 1,000 ML IV SCH (09:10)
[2023-07-03] MEDS: MAG SULF 2000 MG/WATER PREMIX 50 ML IV SCH (15:30)
[2023-07-04] VITALS (9 sets, daily range): BP systolic 104–131; BP diastolic 66–84; PULSE 78–89; RESP 16–20; TEMP 97.1–99; O2SAT 95–99
[2023-07-04 05:06] LABS: BASOPHILS # (AUTO) 0.1 K/uL (0.00-0.22); BASOPHILS % (AUTO) 0.6 % (0.0-2.0); EOSINOPHILS # (AUTO) 0.3 K/uL (0-0.4); EOSINOPHILS % (AUTO) 1.9 % (0.0-4.0); HEMATOCRIT 25.7 % (36-52); HEMOGLOBIN 8.5 g/dL (12.0-18.0); LYMPHOCYTES # (AUTO) 0.9 K/uL (2.0-11.5); LYMPHOCYTES % (AUTO) 5.6 % (20.5-51.1); MEAN CORPUSCULAR HEMOGLOBIN 29 pg (27-31); MEAN CORPUSCULAR HGB CONC 33 g/dL (33-37); MEAN CORPUSCULAR VOLUME 86.5 fL (80-94); MONOCYTES # (AUTO) 1.2 K/uL (0.8-1.0); MONOCYTES % (AUTO) 7.2 % (1.7-9.3); NEUTROPHILS % (AUTO) 84.7 % (42.2-75.2); PLATELET COUNT (AUTO) 815 K/uL (140-450); RED BLOOD CELL COUNT(AUTO) 2.97 MIL/uL (4.20-6.10); RED CELL DISTRIBUTION WIDTH 13.5 % (11.6-13.7); WHITE BLOOD COUNT (AUTO) 16.5 K/uL (4.8-10.8)
[2023-07-04 05:25] LABS: ANION GAP 10.2 (8-16); CALCIUM 7.8 mg/dL (8.5-10.1); CARBON DIOXIDE 26.7 mmol/L (21-32); CREATININE 2.8 mg/dL (0.6-1.3); POTASSIUM 3.9 mmol/L (3.5-5.1)
[2023-07-04 05:32] LABS: MAGNESIUM 2.3 mg/dL (1.8-2.4); PHOSPHORUS 3.9 mg/dL (2.5-4.9)
[2023-07-05 04:00] VITALS: BP 94/54; PULSE 85; RESP 18; TEMP 98.2; O2SAT 98
[2023-07-05 05:37] LABS: BASOPHILS # (AUTO) 0.1 K/uL (0.00-0.22); BASOPHILS % (AUTO) 0.8 % (0.0-2.0); EOSINOPHILS # (AUTO) 0.3 K/uL (0-0.4); EOSINOPHILS % (AUTO) 1.7 % (0.0-4.0); HEMATOCRIT 24.3 % (36-52); HEMOGLOBIN 8.2 g/dL (12.0-18.0); LYMPHOCYTES # (AUTO) 0.8 K/uL (2.0-11.5); LYMPHOCYTES % (AUTO) 5.3 % (20.5-51.1); MEAN CORPUSCULAR HEMOGLOBIN 29 pg (27-31); MEAN CORPUSCULAR HGB CONC 34 g/dL (33-37); MONOCYTES # (AUTO) 1.4 K/uL (0.8-1.0); MONOCYTES % (AUTO) 9.6 % (1.7-9.3); NEUTROPHILS # (AUTO) 12.4 K/uL (1.8-7.7); NEUTROPHILS % (AUTO) 82.6 % (42.2-75.2); PLATELET COUNT (AUTO) 850 K/uL (140-450); RED BLOOD CELL COUNT(AUTO) 2.82 MIL/uL (4.20-6.10); RED CELL DISTRIBUTION WIDTH 13.3 % (11.6-13.7); WHITE BLOOD COUNT (AUTO) 15.1 K/uL (4.8-10.8)
[2023-07-05 07:21] LABS: ANION GAP 10.5 (8-16); CALCIUM 7.9 mg/dL (8.5-10.1); CARBON DIOXIDE 24.8 mmol/L (21-32); CREATININE 2.6 mg/dL (0.6-1.3); MAGNESIUM 1.9 mg/dL (1.8-2.4); PHOSPHORUS 3.7 mg/dL (2.5-4.9); POTASSIUM 4.3 mmol/L (3.5-5.1)
[2023-07-05 08:00] VITALS: BP 101/68; PULSE 84; RESP 18; TEMP 97.7; O2SAT 96
[2023-07-05] MEDS ORDERED: LEVO750T75 PO (10:29)
[2023-07-05] MEDS ORDERED: LANTUS SUBQ (10:29)
[2023-07-05] MEDS ORDERED: PRO5 PO (10:29)
[2023-07-05 12:15] VITALS: BP 98/63; PULSE 74; RESP 18; TEMP 98; O2SAT 97
[2023-07-05 16:00] VITALS: BP 128/83; PULSE 84; RESP 18; TEMP 98.6; O2SAT 98
== END 2023-07-05 16:20 | disposition home or self-care (01) | DRG 720 ==
LOC: MED 23:40 → MIC 06-23 02:46 → MMU 06-23 02:46 → MIC 06-23 07:57 → MTU 06-30 17:45
PROVIDERS: ADMIT Hospitalist; ATTEND Hospitalist
PROC: 0T9130Z Drainage of Left Kidney with Drainage Device, Percutaneous Approach (ICD-10-PCS; principal; 2023-06-29)
PROC: 0T9030Z Drainage of Right Kidney with Drainage Device, Percutaneous Approach (ICD-10-PCS; 2023-06-29)
DX: A41.51 Sepsis due to Escherichia coli [E. coli] (principal); N17.0 Acute kidney failure with tubular necrosis; R65.21 Severe sepsis with septic shock; N15.1 Renal and perinephric abscess; E10.10 Type 1 diabetes mellitus with ketoacidosis without coma; G93.41 Metabolic encephalopathy; Z20.822 Contact with and (suspected) exposure to COVID-19; E87.1 Hypo-osmolality and hyponatremia; N39.0 Urinary tract infection, site not specified; N47.1 Phimosis; N12 Tubulo-interstitial nephritis, not specified as acute or chronic; Z79.4 Long term (current) use of insulin; Z79.899 Other long term (current) drug therapy; B96.20 Unspecified Escherichia coli [E. coli] as the cause of diseases classified elsewhere
CPT/HCPCS: 36415; 36600; 71045; 75989; 76770; 80048; 80053; 80076; 81001; 82009; 82330; 82803; 82948; 83036; 83605; 83735; 84100; 84436; 84439; 84443; 84479; 85025; 85610; 85730; 87040; 87070; 87081; 87086; 87205; 93005; 96365; 96367; 97112; 97116; 97163-GP; 97530; 99291; J0692; J0696; J1644; J1815; J2001; J2250; J2405; J2543; J3010; J3475; J3480; J3490; J7030; J7060; Q0092

== ENCOUNTER 2023-11-02 14:50 | Inpatient (IN) | payer OTHER ==
[~2023-11-02] VITALS: Ht 182.9 cm; Wt 59.0 kg
[~2023-11-02 14:50] MED LIST changes: +ASPI-1822 PO; +HYDR-5071 PO; -INSU100S5 SUBQ; +LANTUS SUBQ
[2023-11-02 14:56] VITALS: BP 101/62; PULSE 65; RESP 18; TEMP 98.8; O2SAT 97
[2023-11-02] MEDS: NACL 0.9% 1,000 ML IV ONE (16:02)
[2023-11-02 16:18] LABS: BASOPHILS % (AUTO) 0.1 % (0.0-2.0); EOSINOPHILS % (AUTO) 0.1 % (0.0-4.0); HEMATOCRIT 23.7 % (36-52); HEMOGLOBIN 7.8 g/dL (12.0-18.0); LYMPHOCYTES # (AUTO) 0.3 K/uL (2.0-11.5); LYMPHOCYTES % (AUTO) 2.3 % (20.5-51.1); MEAN CORPUSCULAR HEMOGLOBIN 26 pg (27-31); MEAN CORPUSCULAR HGB CONC 33 g/dL (33-37); MEAN CORPUSCULAR VOLUME 79.6 fL (80-94); MONOCYTES # (AUTO) 1.2 K/uL (0.8-1.0); MONOCYTES % (AUTO) 8.9 % (1.7-9.3); NEUTROPHILS # (AUTO) 11.6 K/uL (1.8-7.7); NEUTROPHILS % (AUTO) 88.6 % (42.2-75.2); PLATELET COUNT (AUTO) 315 K/uL (140-450); RED BLOOD CELL COUNT(AUTO) 2.98 MIL/uL (4.20-6.10); RED CELL DISTRIBUTION WIDTH 15.2 % (11.6-13.7); WHITE BLOOD COUNT (AUTO) 13.1 K/uL (4.8-10.8)
[2023-11-02 16:35] LABS: ALANINE AMINOTRANSFERASE 21 U/L (12-78); ALKALINE PHOSPHATASE 253 U/L (50-136); ANION GAP 16.7 (8-16); ASPARTATE AMINOTRANSFERASE 19 U/L (15-37); CALCIUM 8.1 mg/dL (8.5-10.1); CARBON DIOXIDE 15.8 mmol/L (21-32); CHLORIDE 97 mmol/L (98-107); GFR ARICAN-AMERICAN 20 mL/min (>90); GFR NON ARICAN-AMERICAN 17 mL/min (>90); GLUCOSE 215 mg/dL (74-106); LIPASE 22 U/L (16-77); SODIUM SERUM 127 mmol/L (136-145); TOTAL BILIRUBIN 0.4 mg/dL (0.0-1.0)
[2023-11-02 16:38] LABS: CREATININE 4.1 mg/dL (0.6-1.3); POTASSIUM 2.5 mmol/L (3.5-5.1); UREA NITROGEN, BLOOD 63 mg/dL (7-18)
[2023-11-02 16:58] LABS: FLU A ANTIGEN negative (NEGATIVE); FLU B ANTIGEN negative (NEGATIVE)
[2023-11-02] MEDS ORDERED: MAG SULF 2000 MG/WATER PREMIX 50 ML IV PRN (18:15)
[2023-11-02 18:16] LABS: BLOOD GAS PCO2 24.9 mmHg (35-45); BLOOD GAS PO2 91.8 mmHg (75-100)
[2023-11-02 18:17] LABS: BLOOD GAS BASE EXCESS -10.5 mmol/L (-2.0-2.0); BLOOD GAS HCO3 13.8 mmol/L (22-26); BLOOD GAS O2 SAT% 97.1 % (92.0-98.5)
[2023-11-02] MEDS: POTASSIUM CHLORIDE 10 MEQ TABER PO ONE (18:56)
[2023-11-02] MEDS: HYDROcodone/APAP 5/325 MG 1 TAB TAB PO PRN (18:59)
[2023-11-02] MEDS: KCL 20 MEQ IN 100 mL PREMIX 200 ML IV ONE (19:00)
[2023-11-02 19:46] LABS: APPEARANCE,URINE SLIGHTLY CLOUDY (CLEAR); BILIRUBIN,URINE NEGATIVE (NEGATIVE); BLOOD, URINE 3+ (NEGATIVE); COLOR,URINE YELLOW (YELLOW); LEUKOCYTE ESTERASE ,URINE 2+ (NEGATIVE); NITRITE, URINE NEGATIVE (NEGATIVE); PH,URINE 5.5 (5.0-9.0); PROTEIN,URINE 2+ (NEGATIVE); UGLUCOSE NEGATIVE (NEGATIVE); UROBILINOGEN,URINE 0.2 EU/dL (0.2 - 1)
[2023-11-02 19:48] LABS: BACTERIA,URINE 3+ /HPF (None Seen); MUCUS,URINE None Seen /LPF (None Seen); SQUAMOUS EPITHELIAL CELL,UR 4-10 (MOD) /LPF (0-3 (FEW))
[2023-11-02] MEDS: NACL 0.9% 1,000 ML IV SCH (19:51)
[2023-11-02 20:42] VITALS: PULSE 79; RESP 18; O2SAT 100
[2023-11-02 20:50] VITALS: BP 97/61; PULSE 79; RESP 18; TEMP 98.3; O2SAT 100
[2023-11-02 20:56] VITALS: PULSE 81
[2023-11-02] MEDS ORDERED: PIPERACILLIN/TAZOBACTAM 3.375 GM in DEXTROSE 5% 50 ML IV SCH (21:00)
[2023-11-02] MEDS: PIPERACILLIN/TAZOBACTAM 2.25 GM in DEXTROSE 5% 50 ML IV SCH (21:54)
[2023-11-02] MEDS: PIPERACILLIN/TAZOBACTAM 2.25 GM VIAL IV ONE (21:58)
[2023-11-03] VITALS (9 sets, daily range): BP systolic 90–108; BP diastolic 51–60; PULSE 68–92; RESP 18–20; TEMP 96.9–98.5; O2SAT 99–100
[2023-11-03] MEDS: PIPERACILLIN/TAZOBACTAM 2.25 GM VIAL IV ONE (05:49)
[2023-11-03 06:53] LABS: BASOPHILS % (AUTO) 0.5 % (0.0-2.0); EOSINOPHILS # (AUTO) 0.1 K/uL (0-0.4); EOSINOPHILS % (AUTO) 0.8 % (0.0-4.0); HEMATOCRIT 21.3 % (36-52); HEMOGLOBIN 7.1 g/dL (12.0-18.0); LYMPHOCYTES # (AUTO) 0.5 K/uL (2.0-11.5); LYMPHOCYTES % (AUTO) 4.7 % (20.5-51.1); MEAN CORPUSCULAR HEMOGLOBIN 26 pg (27-31); MEAN CORPUSCULAR HGB CONC 33 g/dL (33-37); MONOCYTES # (AUTO) 1.1 K/uL (0.8-1.0); MONOCYTES % (AUTO) 10.4 % (1.7-9.3); NEUTROPHILS # (AUTO) 8.8 K/uL (1.8-7.7); NEUTROPHILS % (AUTO) 83.6 % (42.2-75.2); PLATELET COUNT (AUTO) 297 K/uL (140-450); RED BLOOD CELL COUNT(AUTO) 2.67 MIL/uL (4.20-6.10); RED CELL DISTRIBUTION WIDTH 15.4 % (11.6-13.7); WHITE BLOOD COUNT (AUTO) 10.5 K/uL (4.8-10.8)
[2023-11-03] MEDS: MIDODRINE 5 MG TAB PO SCH (07:04)
[2023-11-03] MEDS: NACL 0.9% 1,000 ML IV SCH (07:09)
[2023-11-03 08:41] LABS: ANION GAP 17.4 (8-16); CARBON DIOXIDE 14.5 mmol/L (21-32); CREATININE 3.7 mg/dL (0.6-1.3)
[2023-11-03 08:42] LABS: POTASSIUM 2.9 mmol/L (3.5-5.1)
[2023-11-03] MEDS: POTASSIUM CHLORIDE 10 MEQ TABER PO SCH (09:43)
[2023-11-03] MEDS: POTASSIUM CHLORIDE 10 MEQ TABER PO PRN (09:44)
[2023-11-03] MEDS ORDERED: KCL 20 MEQ IN 100 mL PREMIX 200 ML IV PRN (14:55)
[2023-11-03] MEDS: MORPHINE SULFATE 4 MG/ML SYR IVP PRN (18:42)
[2023-11-03] MEDS ORDERED: VANCOMYCIN PER PHARMACY MC PRN (19:05)
[2023-11-03] MEDS: VANCOMYCIN 1GM/DEXT 5% PREMIX 200 ML IV ONE (19:50)
[2023-11-03] MEDS: VANCOMYCIN 1,000 MG VIAL ONE (19:51)
[2023-11-04] VITALS: BP 94/57; PULSE 85; RESP 18; TEMP 98; O2SAT 99
[2023-11-04 04:00] VITALS: BP 96/59; PULSE 78; RESP 18; TEMP 97.5; O2SAT 99
[2023-11-04 06:57] LABS: BASOPHILS % (AUTO) 0.3 % (0.0-2.0); EOSINOPHILS # (AUTO) 0.2 K/uL (0-0.4); EOSINOPHILS % (AUTO) 1.7 % (0.0-4.0); HEMATOCRIT 20.3 % (36-52); LYMPHOCYTES # (AUTO) 0.7 K/uL (2.0-11.5); LYMPHOCYTES % (AUTO) 5.9 % (20.5-51.1); MEAN CORPUSCULAR HEMOGLOBIN 26 pg (27-31); MEAN CORPUSCULAR HGB CONC 32 g/dL (33-37); MEAN CORPUSCULAR VOLUME 81.3 fL (80-94); MONOCYTES # (AUTO) 1.3 K/uL (0.8-1.0); MONOCYTES % (AUTO) 11.3 % (1.7-9.3); NEUTROPHILS # (AUTO) 8.9 K/uL (1.8-7.7); NEUTROPHILS % (AUTO) 80.8 % (42.2-75.2); PLATELET COUNT (AUTO) 338 K/uL (140-450); RED CELL DISTRIBUTION WIDTH 15.6 % (11.6-13.7); WHITE BLOOD COUNT (AUTO) 11.1 K/uL (4.8-10.8)
[2023-11-04 07:12] LABS: ANION GAP 15.2 (8-16); CALCIUM 7.7 mg/dL (8.5-10.1); CARBON DIOXIDE 13.8 mmol/L (21-32); CREATININE 3.6 mg/dL (0.6-1.3)
[2023-11-04 07:25] LABS: HEMOGLOBIN 6.5 g/dL (12.0-18.0)
[2023-11-04 08:00] VITALS: BP 88/47; PULSE 71; PULSE 72; PULSE 74; RESP 16; RESP 20; TEMP 97.7; O2SAT 96; O2SAT 99
[2023-11-04] MEDS: ONDANSETRON 4 MG/2 ML VIAL IVP PRN (08:28)
[2023-11-04] MEDS: MAGNESIUM OXIDE 400 MG TAB PO PRN (09:14)
[2023-11-04] MEDS: MIDODRINE 5 MG TAB PO SCH (09:14)
[2023-11-04] MEDS: SODIUM BICARBONATE 8.4% 75 MEQ in NACL 0.45% 1,000 ML IV SCH (09:50)
[2023-11-04 12:00] VITALS: BP 93/53; PULSE 72; PULSE 73; RESP 16; TEMP 97; O2SAT 98
[2023-11-04] MEDS: PANTOPRAZOLE 40 MG INJ VIAL IVP SCH ×2 (12:27→20:08)
[2023-11-04 16:00] VITALS: BP 97/57; PULSE 72; PULSE 76; RESP 16; TEMP 97.7; O2SAT 96
[2023-11-04 20:00] VITALS: BP 94/53; PULSE 78; PULSE 80; RESP 18; TEMP 97.8; O2SAT 98
[2023-11-04 21:17] LABS: HEMATOCRIT 24.8 % (36-52)
[2023-11-05] VITALS: BP 94/51; PULSE 81; PULSE 83; RESP 18; TEMP 97.3; O2SAT 95
[2023-11-05 04:00] VITALS: BP 99/57; PULSE 81; PULSE 86; RESP 18; TEMP 97.5; O2SAT 96
[2023-11-05 06:48] LABS: BASOPHILS # (AUTO) 0.1 K/uL (0.00-0.22); BASOPHILS % (AUTO) 0.5 % (0.0-2.0); EOSINOPHILS # (AUTO) 0.2 K/uL (0-0.4); EOSINOPHILS % (AUTO) 1.4 % (0.0-4.0); HEMATOCRIT 23.5 % (36-52); HEMOGLOBIN 7.5 g/dL (12.0-18.0); LYMPHOCYTES # (AUTO) 0.7 K/uL (2.0-11.5); LYMPHOCYTES % (AUTO) 4.7 % (20.5-51.1); MEAN CORPUSCULAR HEMOGLOBIN 27 pg (27-31); MEAN CORPUSCULAR HGB CONC 32 g/dL (33-37); MEAN CORPUSCULAR VOLUME 83.3 fL (80-94); MONOCYTES # (AUTO) 1.1 K/uL (0.8-1.0); MONOCYTES % (AUTO) 7.6 % (1.7-9.3); NEUTROPHILS # (AUTO) 12.4 K/uL (1.8-7.7); NEUTROPHILS % (AUTO) 85.8 % (42.2-75.2); PLATELET COUNT (AUTO) 373 K/uL (140-450); RED BLOOD CELL COUNT(AUTO) 2.82 MIL/uL (4.20-6.10); RED CELL DISTRIBUTION WIDTH 15.7 % (11.6-13.7); WHITE BLOOD COUNT (AUTO) 14.5 K/uL (4.8-10.8)
[2023-11-05 07:03] LABS: ANION GAP 18.4 (8-16); CALCIUM 7.9 mg/dL (8.5-10.1); CARBON DIOXIDE 13.5 mmol/L (21-32); CREATININE 3.7 mg/dL (0.6-1.3); POTASSIUM 3.9 mmol/L (3.5-5.1)
[2023-11-05 08:00] VITALS: BP 102/59; PULSE 64; PULSE 77; PULSE 80; RESP 16; RESP 18; TEMP 97.8; O2SAT 96; O2SAT 97
[2023-11-05] MEDS: diphenhydrAMINE 50 MG/ML VIAL ONE (09:37)
[2023-11-05] MEDS: MIDAZOLAM 5 MG/5 ML VIAL ONE (09:38)
[2023-11-05] MEDS: fentaNYL citrate 0.05 MG/ML VIAL ONE (09:38)
[2023-11-05] MEDS: VANCOMYCIN HCL 750 MG in NACL 0.9% 250 ML IV SCH (10:00)
[2023-11-05] MEDS: MIDAZOLAM 2 MG/2 ML VIAL IVP ONE (10:09)
[2023-11-05] MEDS: fentaNYL citrate 0.05 MG/ML VIAL IVP ONE (10:10)
[2023-11-05] MEDS: ERYTHROMYCIN 250 MG in NACL 0.9% 100 ML IV SCH (11:48)
[2023-11-05 12:00] VITALS: BP 103/60; PULSE 81; PULSE 84; RESP 17; TEMP 97.7; O2SAT 96
[2023-11-05 16:00] VITALS: BP 108/60; PULSE 81; PULSE 83; RESP 17; TEMP 98.5; O2SAT 95
[2023-11-05 20:00] VITALS: BP 97/51; PULSE 89; PULSE 97; RESP 18; TEMP 101.9; O2SAT 95
[2023-11-05] MEDS: ACETAMINOPHEN 325 MG TAB PO PRN (20:43)
[2023-11-06] VITALS (7 sets, daily range): BP systolic 103–110; BP diastolic 59–64; PULSE 74–96; RESP 18–20; TEMP 98.9–100.9; O2SAT 97–100
[2023-11-06 07:02] LABS: ANION GAP 15.4 (8-16); CALCIUM 7.4 mg/dL (8.5-10.1); CREATININE 3.5 mg/dL (0.6-1.3); POTASSIUM 3.4 mmol/L (3.5-5.1)
[2023-11-06 07:12] LABS: BASOPHILS # (AUTO) 0.1 K/uL (0.00-0.22); BASOPHILS % (AUTO) 0.4 % (0.0-2.0); EOSINOPHILS # (AUTO) 0.1 K/uL (0-0.4); EOSINOPHILS % (AUTO) 0.8 % (0.0-4.0); HEMATOCRIT 22.6 % (36-52); HEMOGLOBIN 7.3 g/dL (12.0-18.0); LYMPHOCYTES # (AUTO) 0.7 K/uL (2.0-11.5); LYMPHOCYTES % (AUTO) 4.4 % (20.5-51.1); MEAN CORPUSCULAR HEMOGLOBIN 26 pg (27-31); MEAN CORPUSCULAR HGB CONC 32 g/dL (33-37); MEAN CORPUSCULAR VOLUME 81.9 fL (80-94); MONOCYTES # (AUTO) 1.3 K/uL (0.8-1.0); NEUTROPHILS # (AUTO) 14.1 K/uL (1.8-7.7); NEUTROPHILS % (AUTO) 86.4 % (42.2-75.2); PLATELET COUNT (AUTO) 385 K/uL (140-450); RED BLOOD CELL COUNT(AUTO) 2.76 MIL/uL (4.20-6.10); RED CELL DISTRIBUTION WIDTH 15.6 % (11.6-13.7); WHITE BLOOD COUNT (AUTO) 16.4 K/uL (4.8-10.8)
[2023-11-06] MEDS: VANCOMYCIN 1,000 MG in DEXTROSE 5% 250 ML IV SCH (08:44)
[2023-11-06] MEDS: POTASSIUM CHLORIDE 10 MEQ TABER PO SCH (13:06)
[2023-11-06] MEDS ORDERED: DEXTROSE 50% 50 ML SYR IVP PRN (19:15)
[2023-11-06] MEDS: BLOOD GLUCOSE MONITORING 1 DEV DEV FS SCH (20:13)
[2023-11-06] MEDS: INSULIN LISPRO SLIDING SCALE 100 UNITS/ML VIAL SUBQ PRN (20:18)
[2023-11-06] MEDS: cefTRIAXone 2,000 MG in DEXTROSE 5% 100 ML IV SCH (20:19)
[2023-11-06] MEDS: INSULIN REGULAR, HUMAN 100 UNIT/ML VIAL SUBQ ONE (20:35)
[2023-11-07] VITALS (7 sets, daily range): BP systolic 93–122; BP diastolic 54–66; PULSE 79–96; RESP 18; TEMP 97.1–99.8; O2SAT 97–100
[2023-11-07 06:39] LABS: CALCIUM 7.3 mg/dL (8.5-10.1); CARBON DIOXIDE 21.7 mmol/L (21-32); CREATININE 3.3 mg/dL (0.6-1.3); POTASSIUM 3.7 mmol/L (3.5-5.1)
[2023-11-07 06:49] LABS: BASOPHILS # (AUTO) 0.1 K/uL (0.00-0.22); BASOPHILS % (AUTO) 0.3 % (0.0-2.0); EOSINOPHILS # (AUTO) 0.2 K/uL (0-0.4); EOSINOPHILS % (AUTO) 1.2 % (0.0-4.0); HEMOGLOBIN 7.2 g/dL (12.0-18.0); LYMPHOCYTES # (AUTO) 0.7 K/uL (2.0-11.5); MEAN CORPUSCULAR HEMOGLOBIN 27 pg (27-31); MEAN CORPUSCULAR HGB CONC 33 g/dL (33-37); MEAN CORPUSCULAR VOLUME 81.1 fL (80-94); MONOCYTES # (AUTO) 1.2 K/uL (0.8-1.0); MONOCYTES % (AUTO) 6.8 % (1.7-9.3); NEUTROPHILS % (AUTO) 87.7 % (42.2-75.2); PLATELET COUNT (AUTO) 424 K/uL (140-450); RED BLOOD CELL COUNT(AUTO) 2.71 MIL/uL (4.20-6.10); RED CELL DISTRIBUTION WIDTH 15.3 % (11.6-13.7); WHITE BLOOD COUNT (AUTO) 18.2 K/uL (4.8-10.8)
[2023-11-07] MEDS: NACL 0.9% 1,000 ML IV SCH (12:48)
[2023-11-07] MEDS: MAG SULF 2000 MG/WATER PREMIX 50 ML IV SCH (14:09)
[2023-11-07] MEDS: SODIUM BICARBONATE 650 MG TAB PO SCH (14:09)
[2023-11-08 07:00] LABS: BASOPHILS # (AUTO) 0.1 K/uL (0.00-0.22); BASOPHILS % (AUTO) 0.4 % (0.0-2.0); EOSINOPHILS # (AUTO) 0.2 K/uL (0-0.4); EOSINOPHILS % (AUTO) 1.4 % (0.0-4.0); HEMATOCRIT 21.2 % (36-52); LYMPHOCYTES # (AUTO) 0.8 K/uL (2.0-11.5); LYMPHOCYTES % (AUTO) 4.5 % (20.5-51.1); MEAN CORPUSCULAR HEMOGLOBIN 27 pg (27-31); MEAN CORPUSCULAR HGB CONC 32 g/dL (33-37); MEAN CORPUSCULAR VOLUME 82.2 fL (80-94); MONOCYTES # (AUTO) 1.1 K/uL (0.8-1.0); MONOCYTES % (AUTO) 6.4 % (1.7-9.3); NEUTROPHILS # (AUTO) 14.9 K/uL (1.8-7.7); NEUTROPHILS % (AUTO) 87.3 % (42.2-75.2); PLATELET COUNT (AUTO) 459 K/uL (140-450); RED BLOOD CELL COUNT(AUTO) 2.57 MIL/uL (4.20-6.10); RED CELL DISTRIBUTION WIDTH 15.4 % (11.6-13.7)
[2023-11-08 07:08] LABS: HEMOGLOBIN 6.8 g/dL (12.0-18.0)
[2023-11-08 07:28] LABS: ALBUMIN 1.3 g/dL (3.4-5.0); ANION GAP 12.6 (8-16); CALCIUM 7.4 mg/dL (8.5-10.1); CREATININE 3.1 mg/dL (0.6-1.3); POTASSIUM 3.6 mmol/L (3.5-5.1); TOTAL BILIRUBIN 0.2 mg/dL (0.0-1.0); TOTAL PROTEIN, SERUM 6.1 g/dL (6.4-8.2)
[2023-11-08 08:00] VITALS: BP 105/59; PULSE 93; RESP 18; TEMP 36.8; O2SAT 98
[2023-11-08 16:00] VITALS: BP 117/82; PULSE 84; RESP 18; TEMP 98.1; O2SAT 97
[2023-11-08 20:00] VITALS: BP 116/68; PULSE 87; RESP 18; TEMP 98.7; O2SAT 97
[2023-11-09 04:00] VITALS: BP 118/71; PULSE 70; RESP 20; TEMP 97.1; O2SAT 98
[2023-11-09 08:00] VITALS: PULSE 85; RESP 18; TEMP 98.9; O2SAT 98
[2023-11-09 08:14] LABS: BASOPHILS # (AUTO) 0.1 K/uL (0.00-0.22); BASOPHILS % (AUTO) 0.6 % (0.0-2.0); EOSINOPHILS # (AUTO) 0.1 K/uL (0-0.4); EOSINOPHILS % (AUTO) 1.1 % (0.0-4.0); HEMATOCRIT 24.3 % (36-52); HEMOGLOBIN 7.8 g/dL (12.0-18.0); LYMPHOCYTES # (AUTO) 0.6 K/uL (2.0-11.5); LYMPHOCYTES % (AUTO) 4.7 % (20.5-51.1); MEAN CORPUSCULAR HEMOGLOBIN 26 pg (27-31); MEAN CORPUSCULAR HGB CONC 32 g/dL (33-37); MEAN CORPUSCULAR VOLUME 82.3 fL (80-94); MONOCYTES % (AUTO) 8.7 % (1.7-9.3); NEUTROPHILS # (AUTO) 10.2 K/uL (1.8-7.7); NEUTROPHILS % (AUTO) 84.9 % (42.2-75.2); PLATELET COUNT (AUTO) 505 K/uL (140-450); RED BLOOD CELL COUNT(AUTO) 2.95 MIL/uL (4.20-6.10); RED CELL DISTRIBUTION WIDTH 15.3 % (11.6-13.7); WHITE BLOOD COUNT (AUTO) 12.1 K/uL (4.8-10.8)
[2023-11-09 16:00] VITALS: BP 114/78; PULSE 84; RESP 18; TEMP 99.4; O2SAT 100
[2023-11-09 20:00] VITALS: PULSE 84; RESP 16; TEMP 98.6; O2SAT 97
[2023-11-10] VITALS: BP 111/71; PULSE 86; RESP 12; TEMP 98.6; O2SAT 97
[2023-11-10 07:04] LABS: BASOPHILS # (AUTO) 0.1 K/uL (0.00-0.22); BASOPHILS % (AUTO) 0.8 % (0.0-2.0); EOSINOPHILS # (AUTO) 0.1 K/uL (0-0.4); EOSINOPHILS % (AUTO) 0.9 % (0.0-4.0); HEMATOCRIT 25.2 % (36-52); HEMOGLOBIN 8.2 g/dL (12.0-18.0); LYMPHOCYTES # (AUTO) 0.6 K/uL (2.0-11.5); LYMPHOCYTES % (AUTO) 4.6 % (20.5-51.1); MEAN CORPUSCULAR HEMOGLOBIN 27 pg (27-31); MEAN CORPUSCULAR HGB CONC 33 g/dL (33-37); MEAN CORPUSCULAR VOLUME 82.6 fL (80-94); MONOCYTES # (AUTO) 1.1 K/uL (0.8-1.0); NEUTROPHILS # (AUTO) 11.3 K/uL (1.8-7.7); NEUTROPHILS % (AUTO) 85.7 % (42.2-75.2); PLATELET COUNT (AUTO) 583 K/uL (140-450); RED BLOOD CELL COUNT(AUTO) 3.06 MIL/uL (4.20-6.10); RED CELL DISTRIBUTION WIDTH 15.1 % (11.6-13.7); WHITE BLOOD COUNT (AUTO) 13.1 K/uL (4.8-10.8)
[2023-11-10 07:19] LABS: ANION GAP 12.7 (8-16); CALCIUM 7.2 mg/dL (8.5-10.1); CREATININE 2.4 mg/dL (0.6-1.3); POTASSIUM 3.7 mmol/L (3.5-5.1)
[2023-11-10 07:23] LABS: MAGNESIUM 1.4 mg/dL (1.8-2.4); PHOSPHORUS 3.2 mg/dL (2.5-4.9)
[2023-11-10 08:00] VITALS: BP 102/60; PULSE 82; PULSE 84; RESP 15; RESP 16; TEMP 97.3; TEMP 98.6; O2SAT 97
[2023-11-10] MEDS: MAG SULF 2000 MG/WATER PREMIX 50 ML IV SCH (11:57)
[2023-11-10 16:00] VITALS: BP 119/71; PULSE 83; RESP 16; TEMP 98.3; O2SAT 98
[2023-11-10] MEDS: Z-GUARD PASTE TP ONE (19:14)
[2023-11-10 20:00] VITALS: BP 104/63; PULSE 82; RESP 18; TEMP 97.9; O2SAT 94
[2023-11-10] MEDS: HYDROcodone/APAP 5/325 MG 1 TAB TAB PO PRN (23:58)
[2023-11-11 07:23] VITALS: TEMP 97.5
[2023-11-11 07:30] VITALS: PULSE 80; RESP 20; O2SAT 99
[2023-11-11 08:00] VITALS: BP 103/69; PULSE 83; RESP 17; TEMP 97.9; O2SAT 94
[2023-11-11 08:26] LABS: BASOPHILS # (AUTO) 0.1 K/uL (0.00-0.22); BASOPHILS % (AUTO) 0.9 % (0.0-2.0); EOSINOPHILS # (AUTO) 0.2 K/uL (0-0.4); EOSINOPHILS % (AUTO) 1.3 % (0.0-4.0); HEMATOCRIT 26.2 % (36-52); HEMOGLOBIN 8.4 g/dL (12.0-18.0); LYMPHOCYTES # (AUTO) 0.6 K/uL (2.0-11.5); LYMPHOCYTES % (AUTO) 4.5 % (20.5-51.1); MEAN CORPUSCULAR HEMOGLOBIN 27 pg (27-31); MEAN CORPUSCULAR HGB CONC 32 g/dL (33-37); MEAN CORPUSCULAR VOLUME 82.9 fL (80-94); MONOCYTES # (AUTO) 1.2 K/uL (0.8-1.0); MONOCYTES % (AUTO) 8.8 % (1.7-9.3); NEUTROPHILS # (AUTO) 11.6 K/uL (1.8-7.7); NEUTROPHILS % (AUTO) 84.5 % (42.2-75.2); PLATELET COUNT (AUTO) 641 K/uL (140-450); RED BLOOD CELL COUNT(AUTO) 3.16 MIL/uL (4.20-6.10); RED CELL DISTRIBUTION WIDTH 14.8 % (11.6-13.7); WHITE BLOOD COUNT (AUTO) 13.7 K/uL (4.8-10.8)
[2023-11-11 08:54] LABS: ANION GAP 13.3 (8-16); CALCIUM 7.4 mg/dL (8.5-10.1); CARBON DIOXIDE 22.7 mmol/L (21-32); CREATININE 2.2 mg/dL (0.6-1.3)
[2023-11-11 08:57] LABS: MAGNESIUM 1.7 mg/dL (1.8-2.4); PHOSPHORUS 3.9 mg/dL (2.5-4.9)
[2023-11-11 16:00] VITALS: BP 98/69; PULSE 78; RESP 17; TEMP 97.7; O2SAT 96
[2023-11-11 20:00] VITALS: BP 91/59; PULSE 97; RESP 17; TEMP 98.5; O2SAT 96
[2023-11-12 04:00] VITALS: BP 99/60; PULSE 81; RESP 17; TEMP 98.1; O2SAT 96
[2023-11-12 07:00] LABS: BASOPHILS # (AUTO) 0.1 K/uL (0.00-0.22); BASOPHILS % (AUTO) 1.1 % (0.0-2.0); EOSINOPHILS # (AUTO) 0.1 K/uL (0-0.4); EOSINOPHILS % (AUTO) 1.1 % (0.0-4.0); HEMATOCRIT 25.7 % (36-52); HEMOGLOBIN 8.3 g/dL (12.0-18.0); LYMPHOCYTES # (AUTO) 0.6 K/uL (2.0-11.5); LYMPHOCYTES % (AUTO) 5.4 % (20.5-51.1); MEAN CORPUSCULAR HEMOGLOBIN 27 pg (27-31); MEAN CORPUSCULAR HGB CONC 32 g/dL (33-37); MEAN CORPUSCULAR VOLUME 83.7 fL (80-94); MONOCYTES # (AUTO) 1.3 K/uL (0.8-1.0); MONOCYTES % (AUTO) 11.2 % (1.7-9.3); NEUTROPHILS # (AUTO) 9.5 K/uL (1.8-7.7); NEUTROPHILS % (AUTO) 81.2 % (42.2-75.2); RED BLOOD CELL COUNT(AUTO) 3.07 MIL/uL (4.20-6.10); RED CELL DISTRIBUTION WIDTH 14.9 % (11.6-13.7); WHITE BLOOD COUNT (AUTO) 11.7 K/uL (4.8-10.8)
[2023-11-12 07:23] LABS: PLATELET COUNT (AUTO) 759 K/uL (140-450)
[2023-11-12 07:24] LABS: ANION GAP 14.4 (8-16); CALCIUM 8.3 mg/dL (8.5-10.1); CARBON DIOXIDE 20.6 mmol/L (21-32); CREATININE 2.2 mg/dL (0.6-1.3)
[2023-11-12 07:48] VITALS: TEMP 97.1
[2023-11-12 07:50] VITALS: PULSE 78; RESP 19; O2SAT 99
[2023-11-12 08:00] VITALS: BP 99/62; PULSE 86; RESP 20; TEMP 98.3; O2SAT 96
[2023-11-12 16:00] VITALS: BP 104/62; PULSE 82; RESP 20; TEMP 97.4; O2SAT 98
[2023-11-12 20:00] VITALS: PULSE 94; RESP 18; TEMP 98.5; O2SAT 100
[2023-11-13] VITALS: BP 93/55; PULSE 94; RESP 18; TEMP 99.1; O2SAT 100
[2023-11-13 07:23] LABS: BASOPHILS # (AUTO) 0.1 K/uL (0.00-0.22); BASOPHILS % (AUTO) 1.1 % (0.0-2.0); EOSINOPHILS # (AUTO) 0.1 K/uL (0-0.4); HEMATOCRIT 26.2 % (36-52); HEMOGLOBIN 8.6 g/dL (12.0-18.0); LYMPHOCYTES # (AUTO) 0.4 K/uL (2.0-11.5); LYMPHOCYTES % (AUTO) 2.8 % (20.5-51.1); MEAN CORPUSCULAR HEMOGLOBIN 28 pg (27-31); MEAN CORPUSCULAR HGB CONC 33 g/dL (33-37); MEAN CORPUSCULAR VOLUME 84.2 fL (80-94); MONOCYTES # (AUTO) 0.9 K/uL (0.8-1.0); MONOCYTES % (AUTO) 6.9 % (1.7-9.3); NEUTROPHILS # (AUTO) 11.9 K/uL (1.8-7.7); NEUTROPHILS % (AUTO) 88.2 % (42.2-75.2); PLATELET COUNT (AUTO) 791 K/uL (140-450); RED BLOOD CELL COUNT(AUTO) 3.11 MIL/uL (4.20-6.10); RED CELL DISTRIBUTION WIDTH 15.4 % (11.6-13.7); WHITE BLOOD COUNT (AUTO) 13.4 K/uL (4.8-10.8)
[2023-11-13 07:37] LABS: ANION GAP 13.7 (8-16); CALCIUM 8.3 mg/dL (8.5-10.1); CARBON DIOXIDE 20.1 mmol/L (21-32); CREATININE 2.1 mg/dL (0.6-1.3); POTASSIUM 3.8 mmol/L (3.5-5.1)
[2023-11-13 08:00] VITALS: BP 91/55; PULSE 99; RESP 18; TEMP 98.9; O2SAT 97
[2023-11-13 16:00] VITALS: BP 108/59; PULSE 92; RESP 18; TEMP 98; O2SAT 100
[2023-11-13 20:00] VITALS: PULSE 84; RESP 17; TEMP 98.3; O2SAT 97
[2023-11-14] VITALS: BP 116/75; PULSE 84; RESP 17; TEMP 98.3; O2SAT 98
[2023-11-14 07:19] LABS: ANION GAP 14.1 (8-16); CALCIUM 8.3 mg/dL (8.5-10.1); CREATININE 1.9 mg/dL (0.6-1.3); POTASSIUM 4.1 mmol/L (3.5-5.1)
[2023-11-14 08:00] VITALS: BP 105/66; PULSE 100; RESP 18; TEMP 97.5; TEMP 98.5; O2SAT 97
[2023-11-14] MEDS ORDERED: INSU100I28 SQ (13:36)
[2023-11-14 16:46] VITALS: BP 105/66; PULSE 100; RESP 18; TEMP 97.5
== END 2023-11-14 17:55 | disposition home or self-care (01) | DRG 720 ==
LOC: MED 14:50 → MTU 18:15 → OBSVTOIN 18:15 → MTU 20:24
PROVIDERS: ADMIT Hospitalist; ATTEND Hospitalist
PROC: 30233N1 Transfusion of Nonautologous Red Blood Cells into Peripheral Vein, Percutaneous Approach (ICD-10-PCS; principal; 2023-11-04)
PROC: 0DJ08ZZ Inspection of Upper Intestinal Tract, Via Natural or Artificial Opening Endoscopic (ICD-10-PCS; 2023-11-05)
DX: A41.51 Sepsis due to Escherichia coli [E. coli] (principal); N17.0 Acute kidney failure with tubular necrosis; E11.00 Type 2 diabetes mellitus with hyperosmolarity without nonketotic hyperglycemic-hyperosmolar coma (NKHHC); E43 Unspecified severe protein-calorie malnutrition; E11.22 Type 2 diabetes mellitus with diabetic chronic kidney disease; E87.1 Hypo-osmolality and hyponatremia; E86.1 Hypovolemia; D64.9 Anemia, unspecified; E11.65 Type 2 diabetes mellitus with hyperglycemia; N39.0 Urinary tract infection, site not specified; N18.4 Chronic kidney disease, stage 4 (severe); E87.6 Hypokalemia; Z20.822 Contact with and (suspected) exposure to COVID-19; I12.9 Hypertensive chronic kidney disease with stage 1 through stage 4 chronic kidney disease, or unspecified chronic kidney disease; Z96.649 Presence of unspecified artificial hip joint; Z79.4 Long term (current) use of insulin; Z43.6 Encounter for attention to other artificial openings of urinary tract; Z79.899 Other long term (current) drug therapy; Z68.1 Body mass index [BMI] 19.9 or less, adult
CPT/HCPCS: 36415; 71045; 73502; 76770; 80048; 80053; 80202; 81001; 82948; 83605; 83690; 83735; 84100; 84484; 85018; 85025; 86886; 86900; 86901; 86920; 87040; 87081; 87086; 87186; 93005; 97110; 97112; 97116; 97163-GP; 97530; C9113; J0696; J1200; J1364; J1644; J1815; J2250; J2270; J2405; J2470; J2543; J3010; J3370; J3475; J3480; J3490; J7030; J7060; P9016; Q0092

== ENCOUNTER 2023-11-17 08:31 | Emergency (ER) | payer OTHER ==
[~2023-11-17] VITALS: Ht 175.3 cm; Wt 65.8 kg
[~2023-11-17 08:31] MED LIST changes: +INSU100I28 SQ
[2023-11-17 08:51] VITALS: BP 138/78; PULSE 79; RESP 12; TEMP 98.2; O2SAT 98
[2023-11-17 11:39] VITALS: BP 138/68; PULSE 73; RESP 10; TEMP 98.2; O2SAT 98
== END 2023-11-17 11:39 | disposition home or self-care (01) ==
LOC: MED 08:31
DX: T83.098A Other mechanical complication of other urinary catheter, initial encounter (principal); R33.9 Retention of urine, unspecified; E11.22 Type 2 diabetes mellitus with diabetic chronic kidney disease; I12.9 Hypertensive chronic kidney disease with stage 1 through stage 4 chronic kidney disease, or unspecified chronic kidney disease; N18.9 Chronic kidney disease, unspecified; Z86.73 Personal history of transient ischemic attack (TIA), and cerebral infarction without residual deficits; Z79.899 Other long term (current) drug therapy; Z79.82 Long term (current) use of aspirin; Z79.4 Long term (current) use of insulin; Y84.6 Urinary catheterization as the cause of abnormal reaction of the patient, or of later complication, without mention of misadventure at the time of the procedure
CPT/HCPCS: 99284

== ENCOUNTER 2024-02-18 22:06 | Emergency (ER) | payer OTHER ==
[~2024-02-18] VITALS: Ht 175.3 cm; Wt 61.2 kg
[2024-02-18 22:09] VITALS: BP 118/79; PULSE 83; RESP 18; TEMP 98.5; O2SAT 99
[2024-02-18 23:38] LABS: BASOPHILS # (AUTO) 0.1 K/uL (0.00-0.22); BASOPHILS % (AUTO) 0.7 % (0.0-2.0); EOSINOPHILS # (AUTO) 0.7 K/uL (0-0.4); EOSINOPHILS % (AUTO) 5.3 % (0.0-4.0); HEMATOCRIT 23.7 % (36-52); HEMOGLOBIN 7.7 g/dL (12.0-18.0); LYMPHOCYTES # (AUTO) 1.1 K/uL (2.0-11.5); LYMPHOCYTES % (AUTO) 8.5 % (20.5-51.1); MEAN CORPUSCULAR HEMOGLOBIN 27 pg (27-31); MEAN CORPUSCULAR HGB CONC 32 g/dL (33-37); MEAN CORPUSCULAR VOLUME 84.5 fL (80-94); MONOCYTES # (AUTO) 0.8 K/uL (0.8-1.0); MONOCYTES % (AUTO) 6.3 % (1.7-9.3); NEUTROPHILS # (AUTO) 10.3 K/uL (1.8-7.7); NEUTROPHILS % (AUTO) 79.2 % (42.2-75.2); PLATELET COUNT (AUTO) 710 K/uL (140-450); RED BLOOD CELL COUNT(AUTO) 2.81 MIL/uL (4.20-6.10); RED CELL DISTRIBUTION WIDTH 15.2 % (11.6-13.7)
[2024-02-18 23:57] LABS: ALBUMIN 2.4 g/dL (3.4-5.0); CALCIUM 8.5 mg/dL (8.5-10.1); CARBON DIOXIDE 21.5 mmol/L (21-32); CREATININE 2.2 mg/dL (0.6-1.3); POTASSIUM 4.5 mmol/L (3.5-5.1); TOTAL BILIRUBIN 0.2 mg/dL (0.0-1.0); TOTAL PROTEIN, SERUM 8.5 g/dL (6.4-8.2)
[2024-02-19] MEDS ORDERED: IBUP-2213 PO (01:03)
[2024-02-19] MEDS ORDERED: SULF-59 PO (01:03)
[2024-02-19] MEDS ORDERED: CEPH-588 PO (01:03)
[2024-02-19] MEDS ORDERED: ACET-8905 PO (01:03)
[2024-02-19 01:16] VITALS: BP 118/79; PULSE 83; RESP 18; TEMP 98.5; O2SAT 99
== END 2024-02-19 01:16 | disposition home or self-care (01) ==
LOC: MED 22:06
DX: T81.31XA Disruption of external operation (surgical) wound, not elsewhere classified, initial encounter (principal); M25.552 Pain in left hip; E11.9 Type 2 diabetes mellitus without complications; I10 Essential (primary) hypertension; Z87.448 Personal history of other diseases of urinary system; Z86.73 Personal history of transient ischemic attack (TIA), and cerebral infarction without residual deficits; Z96.642 Presence of left artificial hip joint; Z79.899 Other long term (current) drug therapy; Z79.4 Long term (current) use of insulin
CPT/HCPCS: 36415; 73502; 80053; 85025; 85651; 86140; 99284; Q0092